=== PATIENT | male | born 1970 | race Two or more races ===

== ENCOUNTER 2025-05-11 20:08 | Inpatient (IN) | payer MEDICAID, OTHER ==
[~2025-05-11] VITALS: Ht 170.2 cm; Wt 96.1 kg
[2025-05-11] MEDS: SODIUM CHLORIDE 0.9% 1,000 ML IV ONE (03:28)
--- NOTE | 2025-05-11 21:40 | DVH ---
CHEST RADIOGRAPH Indication: weak Technique: Single frontal view of the chest was obtained Comparison: None FINDINGS: Lines and Tubes: None Lungs: No focal consolidation. Pleura: No effusion. No pneumothorax. Cardiomediastinal contours: Unremarkable Bones: No acute osseous abnormality. IMPRESSION: 1. No acute cardiopulmonary disease.
[2025-05-11 21:55] LABS: Hemoglobin 14.3 g/dL (13.5-17.5); Mean Corpuscular Hemoglobin 36.9 pg (28.0-32.0); Nucleated Red Blood Cells % 0.1 %
--- NOTE | 2025-05-11 21:55 | DVH ---
Procedure: US RT Lower DVT Study Date and Requested Time: 05/11/2025 09:26 PM History: pain Comparison: None Technique: Multiple high resolution arora-scale images with and without compression obtained of the ri t lower extremity veins, including the common femoral vein, deep femoral vein, proximal mid and dis ilana superficial femoral vein, and popliteal vein. Additional limited images of the greater saphenous vein also obtained. Augmentation performed as indicated. Color and spectral doppler flow images obtai omega as indicated. Findings: No visible intraluminal venous thrombus. No evidence of incompressibility or abnormal color or spectr al Doppler flow visualized in the right lower extremity veins including, the common femoral vein, sd p femoral vein, proximal mid and distal superficial femoral vein, and popliteal vein. Greater sapheno us vein grossly unremarkable. Impression: No sonographic evidence of right lower extremity deep venous thrombosis.
[2025-05-11 21:56] LABS: Hematocrit 41.4 % (41.0-53.0); Mean Corpuscular Volume 106.7 fL (80.0-100.0)
[2025-05-11 22:02] LABS: Alanine Aminotransferase 30 U/L (7-40); Anion Gap 9 (5-15); Blood Urea Nitrogen 14 mg/dL (9-23); Carbon Dioxide 22 mmol/L (20-31); Potassium 4.9 mmol/L (3.5-5.1); Total Protein 7.2 g/dL (5.7-8.2)
[2025-05-11 22:03] LABS: Albumin 2.4 g/dL (3.2-4.8); Alkaline Phosphatase 161 U/L (46-116); Bilirubin, Total 6.0 mg/dL (0.2-1.0); Calcium 7.9 mg/dL (8.7-10.4); Chloride 94 mmol/L (98-107); Glucose 358 mg/dL (74-106); Sodium 125 mmol/L (136-145)
[2025-05-11 22:10] LABS: BUN/Creatinine Ratio 14.4 (10.0-20.0)
--- NOTE | 2025-05-11 22:32 | ED.PDOC ---
Musculoskeletal HPI Comments HPI: 54-year-old male who came to ER for lower extremity pain. Patient does have history of diabetes and liver cirrhosis, alcohol drinker stopped drinking 5 days ago. States for the past week he has been having a lump behind his right knee, progressively worsening, tender to touch. For the past 2 days patient has been having blackish stools. He denies any abdominal pain. Blood sugar at home was 360 Initial Vitals BP: 125/69 HR: 98 RR: 20 O2: 98% Temp: 98.6 Past Medical History: Diabetes, Past Surgical History: Social History: Heavy alcohol drinker stopped drinking 5 days ago, smoking, and drug use. Medications: Allergies: Fermin: HPI: Poor Historian. REVIEW OF SYSTEMS: CONSTITUTIONAL: Denies acute: fever, diaphoresis, chills, HEAD: Denies acute: headache, photophobia Eyes: Denies acute: Double vision, vision loss, eye pain, eye discharge. EARS: Denies acute: tinnitus, hearing loss, ear discharge, ear pain, THROAT: Denies acute: sore throat, swelling, difficulty swallowing , pain with swallowing, change in voice. NECK: Denies acute: neck pain, neck swelling, stiff neck. HEART: Denies acute : chest pain, palpitations, LUNGS: Denies acute: SOB, wheezing, cough, hemoptysis ABDOMEN: Denies acute: abdominal pain, Nausea, Vomiting, diarrhea, , hematemesis, hematochezia SKIN: Denies acute: rash, redness, lesions, itchiness. EXTREMITIES: Denies acute: calf pain, numbness, tingling, weakness, denies pain in extremity. Denies acute: Low back pain. Neuro: Denies acute: focal neurological deficit, motor or sensory focal neurological deficit, tremors, seizure like activity, confusion, dizziness, change in mental status, loss of bowel or bladder function, cauda equina like symptoms. : Denies acute: dysuria, hematuria, flank pain, increase in urinary frequency. PSYCH: Denies acute: hallucination, suicidal ideation, homicidal ideation. PHYSICAL EXAM: General: ----mild----acute distress, awake and alert. Head: normocephalic, atraumatic. Neck: supple, trachea is midline, no swelling. Throat: Normal phonation. Eyes:, no erythema, no purulent discharge, no proptosis, slight icterus. Heart: regular rate, regular rhythm, no significant murmur appreciated. Lungs: no apparent respiratory distress, Able to speak in full sentences. No wheezing, no rhonchi, no crackles. No stridors Clear to auscultation bilaterally. Abdomen: non tender to palpation, non distended, soft, no guarding, no rebound, + bowel sounds. Neuro: Awake, Alert, oriented to name, self, situation, follows commands GCS=15. Speech is normal. Skin: no petechia, no purpura, no cyanosis, non-pale, slightly jaundice. Lower extremities: --no - Pitting edema no deformity, no calf TTP. Noted right knee posterior fossa and above the fossa lump that is erythematous and tender to palpation Makes eye contact. moves all four extremities. Face: no apparent facial droop. ED COURSE: DISCLAIMER: This medical document was created using an electronic medical record system with voice recognition software and computerized dictation system. Although this document has been carefully reviewed, there might still be some phonetic and typographical errors. Occasional wrong-word or "sound-alike" substitutions may have occurred due to the inherent limitations of voice recognition software. These areas are purely typographical due to imperfections of the software programs and do not reflect any compromise in the patient's medical care. Please read the chart carefully and recognize, using context, where these substitutions have occurred. Chief Complaint: Hyperglycemia Time Seen by MD: 22:30 Reviewed Notes: Allergies Allergies: Coded Allergies: NO KNOWN ALLERGIES (Unverified , 05/12/25) Information Source: Patient, Relative Mode of Arrival: Wheelchair Location: Right Was a procedure done? Was a procedure done?: No Differential Diagnosis EXT Differential Diagnosis: Cellulitis, CHF, Deep Vein Thrombosis, Compartment Syndrome, Fracture, Neurovascular injury, Arthritis, Other (Leg swellingDdx include but not limited to DVT, ischemic limb, pitting edema, volume overload, CHF, cellulitis, hematoma, compartment syndrome, dependent edema, venous stasis.) X-Ray, Labs, Meds, VS Vital Signs Date Time Temp Pulse Resp B/P (MAP) Pulse Ox O2 Delivery O2 Flow Rate FiO2 05/12/25 00:46 99.1 84 16 118/67 (84) 97 99.1 05/11/25 20:12 98.6 98 20 125/69 98 98.6 Lab Test 05/11/25 22:59 05/11/25 21:55 05/11/25 21:12 Range/Units Lactic Acid Level 2.5 *H 2.9 *H 0.4-2.0 mmol/L Troponin I High Sensitivity < 3 L 3 L </=54 ng/L White Blood Count 6.9 4.4-10.8 10^3/uL Red Blood Count 3.88 L 4.5-5.90 10^6/uL Hemoglobin 14.3 13.5-17.5 g/dL Hematocrit 41.4 41.0-53.0 % Mean Corpuscular Volume 106.7 H 80.0-100.0 fL Mean Corpuscular Hemoglobin 36.9 H 28.0-32.0 pg Mean Corpuscular Hemoglobin Concent 34.6 32.0-36.0 g/dL Red Cell Distribution Width 14.0 11.8-14.3 % Platelet Count 45 L 140-450 10^3/uL Mean Platelet Volume 9.2 6.9-10.8 fL Neutrophils (%) (Auto) 80.4 H 37.0-80.0 % Lymphocytes (%) (Auto) 8.4 L 10.0-50.0 % Monocytes (%) (Auto) 10.7 0.0-12.0 % Eosinophils (%) (Auto) 0.2 0.0-7.0 % Basophils (%) (Auto) 0.3 0.0-2.0 % Neutrophils # (Auto) 5.5 1.6-8.6 10 ^3/uL Lymphocytes # (Auto) 0.6 0.4-5.4 10 ^3/uL Monocytes # (Auto) 0.7 0-1.3 10 ^3/uL Eosinophils # (Auto) 0 0-0.8 10 ^3/uL Basophils # (Auto) 0 0-0.2 10 ^3/uL Nucleated Red Blood Cells 0.1 % Sodium Level 125 L 136-145 mmol/L Potassium Level 4.9 3.5-5.1 mmol/L Chloride Level 94 L 98-107 mmol/L Carbon Dioxide Level 22 20-31 mmol/L Anion Gap 9 5-15 Blood Urea Nitrogen 14 9-23 mg/dL Creatinine 0.97 0.700-1.30 mg/dL Glomerular Filtration Rate Calc 92 >90 mL/min BUN/Creatinine Ratio 14.4 10.0-20.0 Serum Glucose 358 H 74-106 mg/dL Calcium Level 7.9 L 8.7-10.4 mg/dL Magnesium Level 1.5 L 1.6-2.6 mg/dL Total Bilirubin 6.0 H 0.2-1.0 mg/dL Aspartate Amino Transferase (AST) 98 H 13-40 U/L Alanine Aminotransferase (ALT) 30 7-40 U/L Alkaline Phosphatase 161 H 46-116 U/L Total Protein 7.2 5.7-8.2 g/dL Albumin 2.4 L 3.2-4.8 g/dL Time of 1ST Reevaluation: 22:31 Reevaluation 1ST: Unchanged Patient Education/Counseling: Diagnosis, Treatment Family Education/Counseling: Diagnosis, Treatment Comments MDM: patient presented with the above HPI.--lower extremity pain swelling ----workup was initiated. patient was found with the above mentioned diagnosis. the following medications were ordered: please refer to order lists of meds and tests obtained by myself Dr. Menchaca. Patient ED course and VS have been stabilized. Patient has been reassessed in the ED and remained in a stable condition. Pertinent incidental findings were discussed with the patient and/or family. Patient/family voices understanding and is agreeable with plan. Patient has been observed in the ED adequate length of time to insure improvement/stability. Escalation of care considered: Consideration of escalation to observation or admission Patient was ADMITTED to the medicine team for further evaluation and treatment of their presentation. All the reports of any imaging studies that were ordered by myself were reviewed by myself. Sepsis Sepsis Reasesment Focused Exam Orders: Laboratory Tests 05/11/25 21:12: Lactic Acid Level 2.9 05/11/25 22:59: Lactic Acid Level 2.5 Departure 1 Departure Time of Disposition: 05:43 Impression: Primary Impression: Hyponatremia Additional Impressions: Hypomagnesemia Hyperbilirubinemia Liver cirrhosis Cellulitis of right leg Alcohol withdrawal Harris's cyst of knee Disposition: ADMITTED INPATIENT Admit to: [facility] Condition: Guarded Discharged With: Self Critical Care Note Critical Care Time?: Yes (1 hr-critical care time only) I personally scribed for ERIC MENCHACA DO ([email or web address]) on 05/11/25 at 22:32. Electronically submitted by Fabrizio Genao ([facility]). ERIC MENCHACA DO May 11, 2025 22:32
[2025-05-11 22:36] LABS: Lactic Acid w/Reflex 2.9 mmol/L (0.4-2.0)
--- NOTE | 2025-05-11 23:15 | DVH ---
Exam: CT CT AB PEL WO CON-NO ORAL OR IV History: n/v/ dark stool Comparison Study: None TECHNIQUE: Multidetector CT of the abdomen and pelvis was performed from lung bases to pubic symphysi s. Imaging was performed without IV contrast. Axial, coronal, and sagittal multiplanar reformats were obtained from the axial data set by the technologist. RADIATION DOSE: CTDI vol 8.87 mGy. DLP 608.25 mGy.cm Findings: Limited evaluation of the solid organs in the absence of IV contrast. Evaluation is also degraded by motion artifact. Liver: Nodular hepatic contour. Too small to characterize right hepatic lesion. Spleen: Splenomegaly. Pancreas: Unremarkable. Gallbladder: Unremarkable. Adrenals: The left adrenal gland is not well visualized. 3.5 cm indeterminate lesion in the expected region of the left adrenal gland. Kidneys: 2.5 cm right renal cyst with calcification along the rim. Probable left renal cyst with jonnie cification, suboptimally assessed given motion artifact. No hydronephrosis. Pelvic Viscera: Unremarkable. Vasculature: Mild atherosclerotic aortoiliac calcifications. There are upper abdominal varices. Retroperitoneum: Shotty retroperitoneal nodes. Hazy appearance of the mesentery. Bowel: The small bowel within the pelvis is difficult to follow given close proximity of bowel loops , lack of contrast, and motion artifact. There are scattered locules of gas that are likely contained within small bowel loops, though extraluminal gas cannot be entirely excluded. Musculoskeletal: Grade 1 anterolisthesis of L5 on S1 on the basis of bilateral pars defects. Soft tissues: Unremarkable Lungs: Basilar atelectasis/scarring. Impression: 1. The small bowel within the pelvis is difficult to follow given close proximity of bowel loops, lac k of contrast, and motion artifact. There are scattered locules of gas that are likely contained with in small bowel loops, though extraluminal gas cannot be entirely excluded. If clinically indicated, c onsider further evaluation with a repeat examination with water-soluble oral contrast. 2. Cirrhosis with stigmata of portal hypertension. 3. The left adrenal gland is not well visualized, there is a 3.5 cm indeterminate lesion in the expec peneloep region of the left adrenal gland. An adrenal lesion cannot be excluded. Comparison with any prior outside imaging and further evaluation with a nonemergent MRI of the abdomen may be beneficial in f urther assessment as clinically indicated. 4. Additional findings as detailed.
--- NOTE | 2025-05-12 02:59 | DVH ---
EXAMINATION: CT CT R KNEE WO CONTRAST INDICATION: r knee post fossa redness swelling COMPARISON: None TECHNIQUE: CT of the rightleft foot was performed without contrast. Volume transverse images were obt ained reconstructed in multiple planes using bone and soft tissue algorithms. CTDIvol: 16 mGy. DLP: 563 mGy cm. FINDINGS: Marked soft tissue stranding in the popliteal fossa most focal/confluence along the proximal gastrocn emius muscle bellies. No obvious thick-walled fluid collection. No associated soft tissue gas. An in cidental Harris's cyst is present. No acute osseous finding. Mild tricompartmental osteoarthrosis. Small joint effusion. Peripheral atherosclerosis. IMPRESSION: 1. Marked unorganized soft tissue stranding within the popliteal fossa, without clear etiology. No e vidence of a drainable infectious fluid collection. 2. Small incidental harris's cyst. 3. Mild knee osteoarthrosis and small joint effusion.
[2025-05-12] MEDS ORDERED: LORazepam 2MG/ML-1ML VIAL IV PRN (03:00)
[2025-05-12] MEDS ORDERED: ONDANSETRON HCL 4 MG/2 ML VIAL IV PRN (03:00)
[2025-05-12] MEDS ORDERED: MORPHINE SULFATE INJ 2 MG/ml SYRG IV PRN (03:00)
[2025-05-12] MEDS ORDERED: NITROGLYCERIN 0.4 MG SL TAB SL PRN (03:00)
[2025-05-12] MEDS ORDERED: DOCUSATE SOD 100 MG CAP PO PRN (03:00)
[2025-05-12] MEDS ORDERED: DEXTROSE (50%) 50ML SYRG IV PRN (03:00)
--- NOTE | 2025-05-12 03:06 | DVHHP2 ---
History of Present Illness Reason for Visit: Generalized weakness History of Present Illness The patient is a 54-year-old male with past medical history of EtOH, diabetes mellitus, and liver cirrhosis who presented to [facility] ED with complaint of right lower extremity pain..Patient is a heavy alcohol drinker who stopped drinking 5 days ago, smoking and drug use. Patient reports for the past week he has been experiencing a lump behind his right knee, progressively worsening, tender to touch, painful rating 9/10 numeric scale, has been having blackish stool for the past 2 days. Patient was seen and evaluated in the ED, laboratory data shows WBC 6.9, platelets 27277, sodium 125, potassium 4.9, BUN 14, creatinine 0.97, GFR 92, glucose 358, calcium 7.9, albumin 2.4, lactic acid 2.5, AST 98, ALT 30, alkaline phos 161, magnesium 1.5, total bilirubin 6.0, blood pressure 118/67, heart rate 84, temperature 99.1 F, O2 saturation 97% on room air. Abdomen/pelvis CT revealing cirrhosis with stigmata of portal hypertension; right lower extremity venous study showed no sonographic evidence of right lower extremity deep venous thrombosis. Please see medication orders section in the computer. On my assessment, patient denied chest pain, no headache, no dizziness, no diaphoresis, no shortness of breaths, no abdominal pain, no diarrhea, no nausea, no vomiting, no fever, no chills. Patient was admitted for further evaluation and medical management. Past Medical History EtOH abuse, Diabetes mellitus, Liver cirrhosis, Past Surgical History Denies all surgeries Family History Reviewed, noncontributory to the management of this case. Past Social History The patient lives at home, smokes cigarettes, drinks alcohol heavily, uses illicit drugs abuse. Review of Systems Constitutional: Yes: Weakness; No: Fever, Chills, Sweats, Malaise, Other Eyes: No: Pain, Vision change, Conjunctivae inflammation, Eyelid inflammation, Other, Redness ENT: No: Ear pain, Ear discharge, Nose pain, Nose discharge, Nose congestion, Mouth pain, Mouth swelling, Throat pain, Throat swelling, Other Respiratory: No: Cough, Dry, Shortness of breath, SOB with excertion, Wheezing, Hemoptysis, Pleuritic Pain, Sputum, Wheezing, Other Cardiovascular: No: Chest Pain, Palpitations, Orthopnea, Paroxysmal Noc. Dyspnea, Edema, Lt Headedness, Other Gastrointestinal: No: Nausea, Vomiting, Abdominal Pain, Diarrhea, Constipation, Melena, Hematochezia, Other Genitourinary: No Dysuria, No Frequency, No Incontinence, No Hematuria, No Retention, No Other Musculoskeletal: other (Right lower leg pain); No: neck pain, shoulder pain, arm pain, back pain, hand pain, leg pain, foot pain Skin: No: Rash, Lesions, Jaundice, Bruising, Other Neurological: No: Weakness, Numbness, Incoordination, Change in speech, Confusion, Seizures, Other Allergies: Coded Allergies: NO KNOWN ALLERGIES (Unverified , 05/12/25) Medications Current Medications Medications Dose Ordered Sig/Matt Route Start Time Stop Time Status Last Admin Dose Admin Lorazepam 1 mg Q2HP PRN IV 05/12/25 03:00 UNV Lactulose 30 ml BID PO 05/12/25 10:00 UNV Folic Acid 1 mg/ Dextrose 50.2 ml @ 200.8 mls/ hr DAILY INJ 05/12/25 10:00 UNV Thiamine HCl 100 mg DAILY IV 05/12/25 10:00 UNV Pantoprazole Sodium 40 mg BID IV 05/12/25 10:00 UNV Diagnostic Test (Pha) 1 strip IQ4HR 05/12/25 04:00 UNV Insulin Human Regular IQ4HR SC 05/12/25 04:00 UNV Dextrose 50 ml UD PRN IV 05/12/25 03:00 UNV Sodium Chloride 1,000 ml @ 120 mls/hr Q8H20M IV 05/12/25 03:00 UNV Acetaminophen/ Hydrocodone Bitart 1 tab Q4HP PRN PO 05/12/25 03:00 UNV Ondansetron HCl 4 mg Q4HP PRN IV 05/12/25 03:00 UNV Docusate Sodium 100 mg BIDPRN PRN PO 05/12/25 03:00 UNV Nitroglycerin 0.4 mg Q5MINP PRN SL 05/12/25 03:00 UNV Morphine Sulfate 2 mg Q30M PRN IV 05/12/25 03:00 UNV Exam Vital Signs Vital Signs Date Time Temp Pulse Resp B/P (MAP) Pulse Ox O2 Delivery O2 Flow Rate FiO2 05/12/25 00:46 99.1 84 16 118/67 (84) 97 99.1 General Appearance: Alert, Oriented X3, Cooperative, No acute distress HEENT: Atraumatic, PERRLA, EOMI, Mucous membr. moist/pink Respiratory: Normal air movement, Other (Diminished breath sounds) Cardiovascular: Regular rate, Normal S1, Normal S2, No murmurs Abdominal: Normal bowel sounds, Soft, No tenderness, No hepatospenomegaly, No masses Extremities: No clubbing, No cyanosis, No edema, Normal pulses, Other (Right lower extremity tenderness/swelling) Skin: No rashes, No significant lesion Neuro: Normal speech, Normal tone, Sensation intact, Cranial nerves 3-12 NL, Reflexes 2+, Other (Generalized weakness) Psych/Mental Status: Mental status NL, Mood NL Labs/Xrays Labs Test 05/11/25 22:59 05/11/25 21:55 05/11/25 21:12 Range/Units Lactic Acid Level 2.5 *H 0.4-2.0 mmol/L Troponin I High Sensitivity < 3 L </=54 ng/L White Blood Count 6.9 4.4-10.8 10^3/uL Red Blood Count 3.88 L 4.5-5.90 10^6/uL Hemoglobin 14.3 13.5-17.5 g/dL Hematocrit 41.4 41.0-53.0 % Mean Corpuscular Volume 106.7 H 80.0-100.0 fL Mean Corpuscular Hemoglobin 36.9 H 28.0-32.0 pg Mean Corpuscular Hemoglobin Concent 34.6 32.0-36.0 g/dL Red Cell Distribution Width 14.0 11.8-14.3 % Platelet Count 45 L 140-450 10^3/uL Mean Platelet Volume 9.2 6.9-10.8 fL Neutrophils (%) (Auto) 80.4 H 37.0-80.0 % Lymphocytes (%) (Auto) 8.4 L 10.0-50.0 % Monocytes (%) (Auto) 10.7 0.0-12.0 % Eosinophils (%) (Auto) 0.2 0.0-7.0 % Basophils (%) (Auto) 0.3 0.0-2.0 % Neutrophils # (Auto) 5.5 1.6-8.6 10 ^3/uL Lymphocytes # (Auto) 0.6 0.4-5.4 10 ^3/uL Monocytes # (Auto) 0.7 0-1.3 10 ^3/uL Eosinophils # (Auto) 0 0-0.8 10 ^3/uL Basophils # (Auto) 0 0-0.2 10 ^3/uL Nucleated Red Blood Cells 0.1 % Sodium Level 125 L 136-145 mmol/L Potassium Level 4.9 3.5-5.1 mmol/L Chloride Level 94 L 98-107 mmol/L Carbon Dioxide Level 22 20-31 mmol/L Anion Gap 9 5-15 Blood Urea Nitrogen 14 9-23 mg/dL Creatinine 0.97 0.700-1.30 mg/dL Glomerular Filtration Rate Calc 92 >90 mL/min BUN/Creatinine Ratio 14.4 10.0-20.0 Serum Glucose 358 H 74-106 mg/dL Calcium Level 7.9 L 8.7-10.4 mg/dL Magnesium Level 1.5 L 1.6-2.6 mg/dL Total Bilirubin 6.0 H 0.2-1.0 mg/dL Aspartate Amino Transferase (AST) 98 H 13-40 U/L Alanine Aminotransferase (ALT) 30 7-40 U/L Alkaline Phosphatase 161 H 46-116 U/L Total Protein 7.2 5.7-8.2 g/dL Albumin 2.4 L 3.2-4.8 g/dL PATIENT: LONNIE PAZ ACCT: [id number] UNIT: [id number] : 1970 LOC: ER ROOM / BED: / AGE / SEX: 54 / M ADM STATUS: REG ER SERVICE 07 ORDERING PHYSICIAN: ERIC MENCHACA DO PROCEDURE(s): ABPL - CT AB PEL WO CON-NO ORAL OR IV REASON: n/v/ dark stool ORDER NUMBER(s): [id number], ACCESSION NUMBER(s): [id number] Exam: CT CT AB PEL WO CON-NO ORAL OR IV History: n/v/ dark stool Comparison Study: None TECHNIQUE: Multidetector CT of the abdomen and pelvis was performed from lung bases to pubic symphysis. Imaging was performed without IV contrast. Axial, coronal, and sagittal multiplanar reformats were obtained from the axial data set by the technologist. RADIATION DOSE: CTDI vol 8.87 mGy. DLP 608.25 mGy.cm Findings: Limited evaluation of the solid organs in the absence of IV contrast. Evaluation is also degraded by motion artifact. Liver: Nodular hepatic contour. Too small to characterize right hepatic lesion. Spleen: Splenomegaly. Pancreas: Unremarkable. Gallbladder: Unremarkable. Adrenals: The left adrenal gland is not well visualized. 3.5 cm indeterminate lesion in the expected region of the left adrenal gland. Kidneys: 2.5 cm right renal cyst with calcification along the rim. Probable left renal cyst with calcification, suboptimally assessed given motion artifact. No hydronephrosis. Pelvic Viscera: Unremarkable. Vasculature: Mild atherosclerotic aortoiliac calcifications. There are upper abdominal varices. Retroperitoneum: Shotty retroperitoneal nodes. Hazy appearance of the mesentery. Bowel: The small bowel within the pelvis is difficult to follow given close proximity of bowel loops , lack of contrast, and motion artifact. There are scattered locules of gas that are likely contained within small bowel loops, tough extraluminal gas cannot be entirely excluded. Musculoskeletal: Grade 1 anterolisthesis of L5 on S1 on the basis of bilateral pars defects. Soft tissues: Unremarkable Lungs: Basilar atelectasis/scarring. Impression: 1. The small bowel within the pelvis is difficult to follow given close proximity of bowel loops, lack of contrast, and motion artifact. There are scattered locules of gas that are likely contained within small bowel loops, though extraluminal gas cannot be entirely excluded. If clinically indicated, consider further evaluation with a repeat examination with water-soluble oral contrast. 2. Cirrhosis with stigmata of portal hypertension. 3. The left adrenal gland is not well visualized, there is a 3.5 cm indeterminate lesion in the expected region of the left adrenal gland. An adrenal lesion cannot be excluded. Comparison with any prior outside imaging and further evaluation with a nonemergent MRI of the abdomen may be beneficial in further assessment as clinically indicated. 4. Additional findings as detailed. ORDERING PHYSICIAN: ERIC MENCHACA DO PROCEDURE(s): RLDVT - RT Lower DVT REASON: pain ORDER NUMBER(s): [id number], ACCESSION NUMBER(s): [id number] Procedure: US RT Lower DVT Study Date and Requested Time: 05/11/2025 09:26 PM History: pain Comparison: None Technique: Multiple high resolution arora-scale images with and without compression obtained of the right lower extremity veins, including the common femoral vein, deep femoral vein, proximal mid and distal superficial femoral vein, and popliteal vein. Additional limited images of the greater saphenous vein also obtained. Augmentation performed as indicated. Color and spectral doppler flow images obtained as indicated. Findings: No visible intraluminal venous thrombus. No evidence of incompressibility or abnormal color or spectral Doppler flow visualized in the right lower extremity veins including, the common femoral vein, deep femoral vein, proximal mid and distal superficial femoral vein, and popliteal vein. Greater saphenous vein nel ssly unremarkable. Impression: No sonographic evidence of right lower extremity deep venous thrombosis. ORDERING PHYSICIAN: ERIC MENCHACA DO PROCEDURE(s): RKNCT - CT R KNEE WO CONTRAST REASON: r knee post fossa redness swelling ORDER NUMBER(s): [id number], ACCESSION NUMBER(s): [id number] EXAMINATION: CT CT R KNEE WO CONTRAST INDICATION: r knee post fossa redness swelling COMPARISON: None TECHNIQUE: CT of the rightleft foot was performed without contrast. Volume transverse images were obtained reconstructed in multiple planes using bone and soft tissue algorithms. CTDIvol: 16 mGy. DLP: 563 mGy cm. FINDINGS: Marked soft tissue stranding in the popliteal fossa most focal/confluence along the proximal gastrocnemius muscle bellies. No obvious thick-walled fluid collection. No associated soft tissue gas. An incidental Harris's cyst is present. No acute osseous finding. Mild tricompartmental osteoarthrosis. Small joint effusion. Peripheral atherosclerosis. IMPRESSION: 1. Marked unorganized soft tissue stranding within the popliteal fossa, without clear etiology. No evidence of a drainable infectious fluid collection. 2. Small incidental harris's cyst. 3. Mild knee osteoarthrosis and small joint effusion. ORDERING PHYSICIAN: ERIC MENCHACA DO PROCEDURE(s): CXRP - CHEST PORTABLE REASON: weak ORDER NUMBER(s): [id number], ACCESSION NUMBER(s): [id number] CHEST RADIOGRAPH Indication: weak Technique: Single frontal view of the chest was obtained Comparison: None FINDINGS: Lines and Tubes: None Lungs: No focal consolidation. Pleura: No effusion. No pneumothorax. Cardiomediastinal contours: Unremarkable Bones: No acute osseous abnormality. IMPRESSION: 1. No acute cardiopulmonary disease. SEPSIS Sepsis Screen Date sepsis recognized/suspect: May 11, 2025 Time Sepsis recognized/suspect: 2018 Recent Procedure: No On Antibiotic Therapy: No Respiratory Rate >20: No Heart Rate >90: Yes Temp<36 C (96.8 F) or >38.3 C: No SBP <90 or MAP <65 mmHG: No New Acute Mental Status Change: No Is the patient on CPAP, BIPAP,: No Physician Orders Dental Technology Advisor (05/11/25 ) Urinalysis (05/11/25 20:52) Stool Occult Blood (05/11/25 20:52) Drug Screen (05/11/25 20:52) Chest Portable (05/11/25 20:52) Electrocardigram (05/11/25 20:52) Rt Lower Dvt (05/11/25 20:52) Ct Ab Pel Wo Con-No Oral Or Iv (05/11/25 22:08) Ct R Knee Wo Contrast (05/12/25 01:40) Complete Blood Count (05/12/25 04:00) Comprehensive Metabolic Panel (05/12/25 04:00) Calcium Gluc 1,000mg/50ml-Ns (05/12/25 03:00) Albumin 25% (Albutein) (05/12/25 03:00) Lorazepam 2mg/Ml Inj (Ativan Inj) (05/12/25 03:00) Lactulose Oral (05/12/25 10:00) Folic Acid (05/12/25 10:00) Thiamine Inj (05/12/25 10:00) Pantoprazole (Protonix) (05/12/25 10:00) * Gi Dvh Physical Testing Supervisor (05/12/25 02:54) Consistent Carb(Ccho)Diabetes (05/12/25 Breakfast) Glucose Blood (Accu-Chek Comfort Curve T (05/12/25 04:00) Insulin R (Human) (Insulin R) (05/12/25 04:00) Dextrose 50% Syringe (05/12/25 03:00) Admit (05/12/25 02:54) Allergies (05/12/25 02:54) Code Status (05/12/25 02:54) Sodium Chloride 0.9% (05/12/25 03:00) Oxygen Per Hour (05/12/25 02:54) Hydrocodone-Acet 5/325mg Tab ([place] 5/32 (05/12/25 03:00) Ondansetron Hcl (Zofran) (05/12/25 03:00) Docusate Sodium Capsule (Colace Capsule) (05/12/25 03:00) Fall Risk Precautions In Place QSHIFT (05/12/25 02:54) Complete Blood Count (05/13/25 04:00) Comprehensive Metabolic Panel (05/13/25 04:00) Condition: Serious (05/12/25 02:54) Maintain Bed Rest (05/12/25 02:54) Sequential Compression Device (05/12/25 ) Nitroglycerin Sublingual (Ntrostat Subli (05/12/25 03:00) Morphine Sulfate Injection (05/12/25 03:00) Stat Ekg For Chest Pain (05/12/25 02:54) Notify Md Of Changes From Base (05/12/25 02:54) Landfill Gas Collection System Operator For 24 Hours (05/12/25 02:54) Emergency Dysrhythmia Protocol (05/12/25 02:54) Rhythm Strips Once Every Shift (05/12/25 02:54) Oxygen By Nasal Cannula (05/12/25 02:54) Vital Signs Date Time Temp Pulse Resp B/P (MAP) Pulse Ox O2 Delivery O2 Flow Rate FiO2 05/12/25 00:46 99.1 84 16 118/67 (84) 97 99.1 05/11/25 20:12 98.6 98 20 125/69 98 98.6 Laboratory Tests Test 05/11/25 21:12 05/11/25 22:59 Lactic Acid Level 2.9 mmol/L (0.4-2.0) *H 2.5 mmol/L (0.4-2.0) *H White Blood Count 6.9 10^3/uL (4.4-10.8) Assessment/Plan Assessment/Plan Hyponatremia Hypomagnesemia Hyperbilirubinemia Liver cirrhosis Cellulitis of right leg Alcohol withdrawal Harris's cyst of knee Generalized weakness Diabetes mellitus with hyperglycemia Plan 1. Admit to telemetry unit 2. Breathing treatment 3. Pain control management 4. IV antibiotic management 5. Management of fluids and electrolytes 6. Consultation for GI/hospitalist 7. Diagnostic test abdomen/pelvis CT 8. DVT prophylaxis-on SCDs 9. Repeat labs CBC, CMP in a.m. 10. Home medication reviewed and reconciled 11. Continue with current medical management 12. Treatment plan discussed with patient and RN. Patient verbalized understanding. Plan discussed with: Patient, Daughter (At bedside), Other (RN) My Orders Orders - RHIANNON SIEGEL DNP Procedure Category Date Status Time Complete Blood Count LAB 05/12/25 Logged 04:00 Comprehensive LAB 05/12/25 Logged Metabolic Panel 04:00 Calcium Gluc PHA 05/12/25 Logged 1,000mg/50ml-Ns 03:00 Albumin 25% (Albutein) PHA 05/12/25 Logged 03:00 Lorazepam 2mg/Ml Inj PHA 05/12/25 Logged (Ativan Inj) 03:00 Lactulose Oral PHA 05/12/25 Logged 10:00 Folic Acid PHA 05/12/25 Logged 10:00 Thiamine Inj PHA 05/12/25 Logged 10:00 Pantoprazole PHA 05/12/25 Logged (Protonix) 10:00 * Gi Dvh Physical Testing Supervisor CONS 05/12/25 Transmitted 02:54 Consistent DIET 05/12/25 Transmitted Carb(Ccho)Diabetes Breakfast Glucose Blood PHA 05/12/25 Logged (Accu-Chek Comfort 04:00 Insulin R (Human) PHA 05/12/25 Logged (Insulin R) 04:00 Dextrose 50% Syringe PHA 05/12/25 Logged 03:00 Admit ADMIT 05/12/25 Transmitted 02:54 Allergies FREDDY 05/12/25 In Process 02:54 Code Status CODE 05/12/25 Transmitted 02:54 Sodium Chloride 0.9% PHA 05/12/25 Logged 03:00 Oxygen Per Hour RT 05/12/25 Transmitted 02:54 Hydrocodone-Acet PHA 05/12/25 Logged 5/325mg Tab ([place] 03:00 Ondansetron Hcl PHA 05/12/25 Logged (Zofran) 03:00 Docusate Sodium PHA 05/12/25 Logged Capsule (Colace 03:00 Fall Risk Precautions FREDDY 05/12/[address] 02:54 Complete Blood Count LAB 8/24/25 Verified 04:00 Comprehensive LAB 05/13/25 Verified Metabolic Panel 04:00 Condition: Serious [facility] 05/12/25 In Process 02:54 Maintain Bed Rest [facility] 05/12/25 In Process 02:54 Sequential [facility] 05/12/25 In Process Compression Device Nitroglycerin [facility] 05/12/25 Logged Sublingual (Ntrostat 03:00 Morphine Sulfate [facility] 05/12/25 Logged Injection 03:00 Stat Ekg For Chest [facility] 05/12/25 In Process Pain 02:54 Notify Md Of Changes [facility] 05/12/25 In Process From Base 02:54 Landfill Gas Collection System Operator For [facility] 05/12/25 In Process 24 Hours 02:54 Emergency Dysrhythmia [facility] 05/12/25 In Process Protocol 02:54 Rhythm Strips Once [facility] 05/12/25 In Process Every Shift 02:54 Oxygen By Nasal 05/12/25 Transmitted Cannula 02:54 Problem List: (1) Hyponatremia (2) Alcohol withdrawal (3) Liver cirrhosis (4) Hyperbilirubinemia (5) Hypomagnesemia (6) Cellulitis of right leg (7) Harris's cyst of knee (8) Generalized weakness (9) Diabetes mellitus with hyperglycemia Date of Service: May 12, 2025 Billing Provider: RHIANNON SIEGEL DNP Common Visit Codes: [id number] INP/OBS CARE (HIGH) RHIANNON SIEGEL DNP May 12, 2025 03:06
[2025-05-12] MEDS: THIAMINE HCL 100 MG TAB PO ONE (03:33)
[2025-05-12] MEDS: PIPERACILLIN-TAZOB 3.375GM 100 ML IV ONE (03:34)
[2025-05-12] MEDS: PANTOPRAZOLE 40 MG/10 ML VIAL INJ IV ONE (03:39)
[2025-05-12] MEDS: InsuLIN REG 1unit/0.01ml Soln (100units/ml) SC SCH (04:00)
[2025-05-12] MEDS: SODIUM CHLORIDE 0.9% 1,000 ML IV SCH ×2 (05:37→18:31)
[2025-05-12] MEDS: ACCU-CHEK COMFORT CURVE STRIP VI SCH (05:38)
[2025-05-12 09:09] LABS: Nucleated Red Blood Cells % 0.1 %
[2025-05-12 09:16] LABS: Hematocrit 40.2 % (41.0-53.0); Hemoglobin 13.9 g/dL (13.5-17.5); Mean Corpuscular Hemoglobin 37.3 pg (28.0-32.0); Mean Corpuscular Volume 107.6 fL (80.0-100.0)
[2025-05-12 09:24] LABS: Alanine Aminotransferase 30 U/L (7-40); Albumin 2.4 g/dL (3.2-4.8); Alkaline Phosphatase 153 U/L (46-116); Anion Gap 9 (5-15); BUN/Creatinine Ratio 13.9 (10.0-20.0); Bilirubin, Total 6.1 mg/dL (0.2-1.0); Blood Urea Nitrogen 14 mg/dL (9-23); Calcium 7.5 mg/dL (8.7-10.4); Carbon Dioxide 21 mmol/L (20-31); Chloride 94 mmol/L (98-107); Glucose 297 mg/dL (74-106); Potassium 4.4 mmol/L (3.5-5.1); Sodium 124 mmol/L (136-145); Total Protein 7.2 g/dL (5.7-8.2)
[2025-05-12] MEDS: ALBUMIN 25% 100 ML IV ONE (10:45)
[2025-05-12] MEDS: HYDROcodone-ACET 5/325MG TAB PO PRN (10:45)
[2025-05-12] MEDS: MULTIPLE VITAMIN TAB PO SCH (10:46)
[2025-05-12] MEDS: LACTULOSE 20Gm/30ML SOLN PO SCH (10:46)
[2025-05-12] MEDS: PANTOPRAZOLE 40 MG/10 ML VIAL INJ IV SCH (11:00)
[2025-05-12] MEDS: THIAMINE 100mg/ml INJ (200mg/2ml VIAL) IV SCH (11:00)
[2025-05-12] MEDS: CALCIUM GLUC 1,000mg/50ml-NS 50 ML IV ONE (11:01)
[2025-05-12] MEDS: MAGNESIUM SULFATE 1GM/100ML 100 ML IV ONE (11:01)
[2025-05-12] MEDS: FOLIC ACID 1 MG in D5W 5% 50 ML INJ SCH (12:08)
--- NOTE | 2025-05-12 15:23 | DVHINCON2 ---
Date of service: May 12, [address] lin Reason for Consultation Patient with right lower extremity pain he alcoholism as well as history of weakness tiredness and nausea vomiting. And increasing jaundice and also black stools. History of Present Illness This 54-year-old male presented to the emergency room with a history of alcoholism diabetes liver cirrhosis in the past admitted with a presented with complaints of right lower extremity pain as well as nausea anorexia as well as black stools. Apparently patient has been experiencing a lump in the right knee on the back of the knee which was tender to touch and painful. History of liver cirrhosis from alcoholism he has been drinking moderately heavily even now Denied any history of any pancreatitis or any trauma to the legs recently Past Medical History Liver cirrhosis diabetes alcoholism Past Surgical History None Family History Noncontributory Social History Moderately heavy smoking but heavy drinking and illicit drug abuse Allergies: Coded Allergies: NO KNOWN ALLERGIES (Unverified , 05/12/25) Current Medications Current Medications Medications (Trade) Dose Ordered Sig/Matt Route PRN Reason Start Time Stop Time Status Last Admin Lorazepam (Ativan Inj) 1 mg Q2HP PRN IV ALCOHOL WITHDRAWAL SYMPTOMS 05/12/25 03:00 Lactulose 30 ml BID PO 05/12/25 10:00 05/12/25 10:46 Folic Acid 1 mg/ Dextrose 50.2 ml @ 200.8 mls/ hr DAILY INJ 05/12/25 10:00 05/12/25 12:08 Thiamine HCl 100 mg DAILY IV 05/12/25 10:00 05/12/25 11:00 Pantoprazole Sodium (Protonix) 40 mg BID IV 05/12/25 10:00 05/12/25 11:00 Diagnostic Test (Pha) (Accu-Chek Comfort Curve T) 1 strip IQ4HR 05/12/25 04:00 05/12/25 11:18 Insulin Human Regular (InsuLIN R) IQ4HR SC 05/12/25 04:00 05/12/25 11:18 Dextrose 50 ml UD PRN IV Blood Sugar LESS THAN 60 05/12/25 03:00 Sodium Chloride 1,000 ml @ 120 mls/hr Q8H20M IV 05/12/25 03:00 05/12/25 11:15 Acetaminophen/ Hydrocodone Bitart ([place] 5/325MG Tab) 1 tab Q4HP PRN PO MODERATE PAIN (4-6 PAIN SCALE) 05/12/25 03:00 05/12/25 10:45 Ondansetron HCl (Zofran) 4 mg Q4HP PRN IV NAUSEA / VOMITING 05/12/25 03:00 Docusate Sodium (Colace Capsule) 100 mg BIDPRN PRN PO FOR CONSTIPATION 05/12/25 03:00 Nitroglycerin (Ntrostat Sublingual) 0.4 mg Q5MINP PRN SL FOR CHEST PAIN 05/12/25 03:00 Morphine Sulfate 2 mg Q30M PRN IV FOR CHEST PAIN 05/12/25 03:00 Multivitamins (Mvi Tab) 1 tab DAILY PO 05/12/25 10:00 05/12/25 10:46 Piperacillin Sod/ Tazobactam Sod 100 ml @ 25 mls/hr Q8HR IV 05/12/25 14:00 UNV Morphine Sulfate 2 mg Q4HPRN PRN IV SEVERE PAIN (7-10 PAIN SCALE) 05/12/25 08:45 Review of Systems Noncontributory Vital Signs Vital Signs Date Time Temp Pulse Resp B/P (MAP) Pulse Ox O2 Delivery O2 Flow Rate FiO2 05/12/25 10:30 98.8 79 16 127/63 (84) 97 98.8 Physical Exam Moderately built and nourished male in no acute distress but looks icteric vital signs stable HEENT examination revealed scleral icterus Lungs are clear Vascular unremarkable And soft mild fullness no rigidity no guarding no masses Labs/Diagnostic Data Labs Test 05/12/25 11:13 05/12/25 08:43 05/11/25 22:59 05/11/25 21:55 Range/Units POC Glucose 330 H 70-106 mg/dl White Blood Count 7.4 4.4-10.8 10^3/uL Red Blood Count 3.74 L 4.5-5.90 10^6/uL Hemoglobin 13.9 13.5-17.5 g/dL Hematocrit 40.2 L 41.0-53.0 % Mean Corpuscular Volume 107.6 H 80.0-100.0 fL Mean Corpuscular Hemoglobin 37.3 H 28.0-32.0 pg Mean Corpuscular Hemoglobin Concent 34.6 32.0-36.0 g/dL Red Cell Distribution Width 14.1 11.8-14.3 % Platelet Count 58 L 140-450 10^3/uL Mean Platelet Volume 8.9 6.9-10.8 fL Neutrophils (%) (Auto) 77.0 37.0-80.0 % Lymphocytes (%) (Auto) 9.3 L 10.0-50.0 % Monocytes (%) (Auto) 13.2 H 0.0-12.0 % Eosinophils (%) (Auto) 0.2 0.0-7.0 % Basophils (%) (Auto) 0.3 0.0-2.0 % Neutrophils # (Auto) 5.7 1.6-8.6 10 ^3/uL Lymphocytes # (Auto) 0.7 0.4-5.4 10 ^3/uL Monocytes # (Auto) 1.0 0-1.3 10 ^3/uL Eosinophils # (Auto) 0 0-0.8 10 ^3/uL Basophils # (Auto) 0 0-0.2 10 ^3/uL Nucleated Red Blood Cells 0.1 % Sodium Level 124 L 136-145 mmol/L Potassium Level 4.4 3.5-5.1 mmol/L Chloride Level 94 L 98-107 mmol/L Carbon Dioxide Level 21 20-31 mmol/L Anion Gap 9 5-15 Blood Urea Nitrogen 14 9-23 mg/dL Creatinine 1.01 0.700-1.30 mg/dL Glomerular Filtration Rate Calc 87 >90 mL/min BUN/Creatinine Ratio 13.9 10.0-20.0 Serum Glucose 297 H 74-106 mg/dL Calcium Level 7.5 L 8.7-10.4 mg/dL Total Bilirubin 6.1 H 0.2-1.0 mg/dL Aspartate Amino Transferase (AST) 93 H 13-40 U/L Alanine Aminotransferase (ALT) 30 7-40 U/L Alkaline Phosphatase 153 H 46-116 U/L Total Protein 7.2 5.7-8.2 g/dL Albumin 2.4 L 3.2-4.8 g/dL Lactic Acid Level 2.5 *H 0.4-2.0 mmol/L Troponin I High Sensitivity < 3 L </=54 ng/L Test 05/11/25 21:12 Range/Units Magnesium Level 1.5 L 1.6-2.6 mg/dL Assessment 54-year-old with a history of a alcoholism diabetes liver cirrhosis admitted with complaints of right lower extremity pain as well as abdominal discomfort mild with nausea black stools patient was found to be having a bilirubin of six with jaundice liver enzymes are increased AST of 98 ALT 30 alk phos is 161. CT abdomen showed liver cirrhosis with stigmata of portal hypertension. Right lower extremity showed no venous thrombosis. CT of the [place] of the foot showed there was soft tissue stranding in the popliteal fossa with confluence along the gastrocnemius muscle associated with nosoft tissue gas Cirrhosis of the liver with some GI bleeding end-stage liver disease with a CC of persistent alcoholism and diabetes Pain possible infection in the popliteal fossa etiology of is unclear Plan/Recommendation Recommend to monitor the liver functions and hemoglobin If enzymes continue to worsen may need further evaluation We will recommend a consultation from ortho or surgery about the leg as well as if necessary infectious disease consult We will watch closely for bleeding Thank you Dr. Alberto Hernandez discussed with: Patient ML GONZALES MD May 12, 2025 15:23
[2025-05-12 16:30] VITALS: PULSE 124; RESP 20; O2SAT 96
--- NOTE | 2025-05-12 17:55 | DVHPN2 ---
[facility] evaluated discussed with family and nurse at bedside. At present complains of generalized weakness but no other complaints. Changes from previous H/P or p: No Changes Eyes: No Pain, No Vision change, No Conjunctivae inflammation, No Eyelid inflammation, No Other, No Redness ENT: No Ear pain, No Ear discharge, No Nose pain, No Nose discharge, No Nose congestion, No Mouth pain, No Mouth swelling, No Throat pain, No Throat swelling, No Other Cardiovascular: No Chest Pain, No Palpitations, No Orthopnea, No Paroxysmal Noc. Dyspnea, No Edema, No Lt Headedness, No Other Respiratory: No Cough, No Dry, No Shortness of breath, No SOB with excertion, No Wheezing, No Hemoptysis, No Pleuritic Pain, No Sputum, No Other Gastrointestinal: No Nausea, No Vomiting, No Abdominal Pain, No Diarrhea, No Constipation, No Melena, No Hematochezia, No Other Genitourinary: No Dysuria, No Frequency, No Incontinence, No Hematuria, No Retention, No Other Musculoskeletal: other (Right lower leg pain); No neck pain, No shoulder pain, No arm pain, No back pain, No hand pain, No leg pain, No foot pain Skin: No Rash, No Lesions, No Jaundice, No Bruising, No Other Objective Vitals Vital Signs Date Time Temp Pulse Resp B/P (MAP) Pulse Ox O2 Delivery O2 Flow Rate FiO2 05/12/25 16:30 99.0 124 22 118/89 (99) 95 99.0 Exam Alert awake oriented to place and person. HEENT notable for scleral icterus. Pupils equal round react to light. Heart regular rate and rhythm S1-S2. Lungs fair air movement without rales wheezes. Abdomen obese soft positive bowel sounds nontender. Extremities 1+ edema in the lower extremities. No focal neurologic deficits Medications Current Medications Medications Dose Ordered Sig/Matt Route Start Time Stop Time Status Last Admin Dose Admin Lorazepam 1 mg Q2HP PRN IV 05/12/25 03:00 Lactulose 30 ml BID PO 05/12/25 10:00 05/12/25 10:46 30 ML Folic Acid 1 mg/ Dextrose 50.2 ml @ 200.8 mls/ hr DAILY INJ 05/12/25 10:00 05/12/25 12:08 200.8 MLS/HR Thiamine HCl 100 mg DAILY IV 8/23/25 10:00 05/12/25 11:00 100 MG Pantoprazole Sodium 40 mg BID IV 05/12/25 10:00 05/12/25 11:00 40 MG Diagnostic Test (Pha) 1 strip IQ4HR 05/12/25 04:00 05/12/25 16:19 1 STRIP Insulin Human Regular IQ4HR SC 05/12/25 04:00 05/12/25 16:18 6 UNITS Dextrose 50 ml UD PRN IV 05/12/25 03:00 Sodium Chloride 1,000 ml @ 120 mls/hr Q8H20M IV 05/12/25 03:00 05/12/25 11:15 120 MLS/HR Acetaminophen/ Hydrocodone Bitart 1 tab Q4HP PRN PO 05/12/25 03:00 05/12/25 10:45 1 TAB Ondansetron HCl 4 mg Q4HP PRN IV 05/12/25 03:00 Docusate Sodium 100 mg BIDPRN PRN PO 05/12/25 03:00 Nitroglycerin 0.4 mg Q5MINP PRN SL 05/12/25 03:00 Morphine Sulfate 2 mg Q30M PRN IV 05/12/25 03:00 Multivitamins 1 tab DAILY PO 05/12/25 10:00 05/12/25 10:46 1 TAB Piperacillin Sod/ Tazobactam Sod 100 ml @ 25 mls/hr Q8HR IV 05/12/25 16:49 Morphine Sulfate 2 mg Q4HPRN PRN IV 05/12/25 08:45 Laboratory Results Laboratory Tests 05/12/25 08:43 Chemistry Test 05/11/25 21:12 05/12/25 08:43 Albumin 2.4 g/dL (3.2-4.8) L 2.4 g/dL (3.2-4.8) L Calcium Level 7.9 mg/dL (8.7-10.4) L 7.5 mg/dL (8.7-10.4) L Magnesium Level 1.5 mg/dL (1.6-2.6) L Total Protein 7.2 g/dL (5.7-8.2) 7.2 g/dL (5.7-8.2) LFT Test 05/11/25 21:12 05/12/25 08:43 Alanine Aminotransferase (ALT) 30 U/L (7-40) 30 U/L (7-40) Alkaline Phosphatase 161 U/L (46-116) H 153 U/L (46-116) H Aspartate Amino Transferase (AST) 98 U/L (13-40) H 93 U/L (13-40) H Total Bilirubin 6.0 mg/dL (0.2-1.0) H 6.1 mg/dL (0.2-1.0) H Assessment/Plan Assessment/Plan (1) Hyponatremia (2) Alcohol withdrawal (3) Liver cirrhosis (4) Hyperbilirubinemia (5) Hypomagnesemia (6) Cellulitis of right leg (7) Harris's cyst of knee (8) Generalized weakness (9) Diabetes mellitus with hyperglycemia I will check his coagulation profile, UA/urine drug screen as well as ammonia levels. Put him on alcohol withdrawal protocol. Ativan as needed. GI evaluation. Continue Protonix and rest of supportive care and treatment. Further clinical management per clinical course. Plan discussed with: Patient, Daughter My Orders Orders - BASHIR BYRNE MD Procedure Category Date Status Time Acetaminophen Tablet PHA 05/12/25 Transmitted (Tylenol Tablet) 18:00 0.9% Ns 1000 Ml PHA 05/12/25 Verified 18:00 Acetaminophen Tablet PHA 05/12/25 Verified (Tylenol Tablet) 18:00 Ativan 1mg Iv Q2hr Prn PHA 05/12/25 Verified 18:00 Etoh Withdrawal FREDDY 05/12/25 Verified Assessment 17:50 Date of Service: May 12, 2025 Billing Provider: BASHIR BYRNE MD Common Visit Codes: [id number] INP/OBS CARE(MOD) BASHIR BYRNE MD May 12, 2025 17:55
[2025-05-12] MEDS: ACETAMINOPHEN 325 MG TAB PO ONE (18:26)
[2025-05-12] MEDS: PIPERACILLIN-TAZOB 3.375GM 100 ML IV SCH (18:27)
[2025-05-12] MEDS: LORazepam 2MG/ML-1ML VIAL IV PRN (18:42)
[2025-05-12 19:07] LABS: INR 1.76 (0.9-1.15); Partial Thromboplastin Time 41.4 SEC (24.5-34.5); Prothrombin Time 17.6 sec (9.3-11.8)
[2025-05-12 19:40] VITALS: PULSE 106; RESP 20; O2SAT 98
[2025-05-12] MEDS: LORazepam 2MG/ML-1ML VIAL IV STA (20:14)
[2025-05-12] MEDS: HALOPERIDOL LACTATE 5 MG/ML INJ VIAL IM ONE (21:09)
[2025-05-13 05:48] LABS: Hematocrit 37.2 % (41.0-53.0); Hemoglobin 12.9 g/dL (13.5-17.5); Mean Corpuscular Hemoglobin 37.8 pg (28.0-32.0); Mean Corpuscular Volume 108.8 fL (80.0-100.0); Nucleated Red Blood Cells % 0.2 %
[2025-05-13 06:03] LABS: Alanine Aminotransferase 23 U/L (7-40); Alkaline Phosphatase 109 U/L (46-116); Anion Gap 8 (5-15); BUN/Creatinine Ratio 14.9 (10.0-20.0); Blood Urea Nitrogen 11 mg/dL (9-23); Carbon Dioxide 22 mmol/L (20-31); Chloride 100 mmol/L (98-107); Potassium 4.4 mmol/L (3.5-5.1); Total Protein 5.8 g/dL (5.7-8.2)
[2025-05-13 06:04] LABS: Albumin 2.0 g/dL (3.2-4.8); Bilirubin, Total 6.0 mg/dL (0.2-1.0); Calcium 7.1 mg/dL (8.7-10.4); Glucose 120 mg/dL (74-106); Sodium 130 mmol/L (136-145)
[2025-05-13 08:18] VITALS: PULSE 77; RESP 26; O2SAT 95
--- NOTE | 2025-05-13 17:36 | DVHPN2 ---
[facility] is seen evaluated discussed with family and nurse at bedside. Patient is more alert and awake today. CT of the knee does not show any abscess or fluid collection. Changes from previous H/P or p: No Changes Eyes: No Pain, No Vision change, No Conjunctivae inflammation, No Eyelid inflammation, No Other, No Redness ENT: No Ear pain, No Ear discharge, No Nose pain, No Nose discharge, No Nose congestion, No Mouth pain, No Mouth swelling, No Throat pain, No Throat swelling, No Other Cardiovascular: No Chest Pain, No Palpitations, No Orthopnea, No Paroxysmal Noc. Dyspnea, No Edema, No Lt Headedness, No Other Respiratory: No Cough, No Dry, No Shortness of breath, No SOB with excertion, No Wheezing, No Hemoptysis, No Pleuritic Pain, No Sputum, No Other Gastrointestinal: No Nausea, No Vomiting, No Abdominal Pain, No Diarrhea, No Constipation, No Melena, No Hematochezia, No Other Genitourinary: No Dysuria, No Frequency, No Incontinence, No Hematuria, No Retention, No Other Musculoskeletal: other (Right lower leg pain); No neck pain, No shoulder pain, No arm pain, No back pain, No hand pain, No leg pain, No foot pain Skin: No Rash, No Lesions, No Jaundice, No Bruising, No Other Objective Vitals Vital Signs Date Time Temp Pulse Resp B/P (MAP) Pulse Ox O2 Delivery O2 Flow Rate FiO2 05/13/25 13:45 83 17 120/54 (76) 05/13/25 08:18 95 Room Air* 0 21 05/13/25 05:55 98.1 98.1 Intake/Output Intake and Output 05/13/25 07:00 Intake Total 300.2 ml Balance 300.2 ml Intake IV Total 300.2 ml Exam Alert awake oriented to place and person. HEENT notable for scleral icterus. Pupils equal round react to light. Heart regular rate and rhythm S1-S2. Lungs fair air movement without rales wheezes. Abdomen obese soft positive bowel sounds nontender. Extremities 1+ edema in the lower extremities. No focal neurologic deficits Medications Current Medications Medications Dose Ordered Sig/Matt Route Start Time Stop Time Status Last Admin Dose Admin Lactulose 30 ml BID PO 05/12/25 10:00 05/13/25 10:21 30 ML Folic Acid 1 mg/ Dextrose 50.2 ml @ 200.8 mls/ hr DAILY INJ 05/12/25 10:00 05/13/25 11:00 200.8 MLS/HR Thiamine HCl 100 mg DAILY IV 05/12/25 10:00 05/13/25 10:21 100 MG Pantoprazole Sodium 40 mg BID IV 05/12/25 10:00 05/13/25 10:21 40 MG Diagnostic Test (Pha) 1 strip IQ4HR 05/12/25 04:00 05/13/25 16:58 1 STRIP Insulin Human Regular IQ4HR SC 05/12/25 04:00 05/13/25 17:03 3 UNITS Dextrose 50 ml UD PRN IV 05/12/25 03:00 Acetaminophen/ Hydrocodone Bitart 1 tab Q4HP PRN PO 05/12/25 03:00 05/12/25 10:45 1 TAB Ondansetron HCl 4 mg Q4HP PRN IV 05/12/25 03:00 Docusate Sodium 100 mg BIDPRN PRN PO 05/12/25 03:00 Nitroglycerin 0.4 mg Q5MINP PRN SL 05/12/25 03:00 Morphine Sulfate 2 mg Q30M PRN IV 05/12/25 03:00 Multivitamins 1 tab DAILY PO 05/12/25 10:00 05/13/25 10:21 1 TAB Piperacillin Sod/ Tazobactam Sod 100 ml @ 25 mls/hr Q8HR IV 05/12/25 16:49 05/13/25 14:22 25 MLS/HR Morphine Sulfate 2 mg Q4HPRN PRN IV 05/12/25 08:45 Sodium Chloride 1,000 ml @ 60 mls/hr [id number] IV 05/12/25 18:00 05/13/25 11:28 60 MLS/HR Acetaminophen 650 mg Q4HP PRN PO 05/12/25 22:00 Lorazepam 1 mg Q2HPRN PRN IV 05/12/25 18:00 05/13/25 08:46 1 MG Laboratory Results Laboratory Tests 05/13/25 05:34 Chemistry Test 05/13/25 05:34 Albumin 2.0 g/dL (3.2-4.8) L Calcium Level 7.1 mg/dL (8.7-10.4) L Total Protein 5.8 g/dL (5.7-8.2) Coagulation Test 05/12/25 18:15 Prothrombin Time 17.6 sec (9.3-11.8) H Prothrombin Time INR 1.76 (0.9-1.15) H Activated Partial Thromboplast Time 41.4 SEC (24.5-34.5) H LFT Test 05/13/25 05:34 Alanine Aminotransferase (ALT) 23 U/L (7-40) Alkaline Phosphatase 109 U/L (46-116) Aspartate Amino Transferase (AST) 81 U/L (13-40) H Total Bilirubin 6.0 mg/dL (0.2-1.0) H Assessment/Plan Assessment/Plan (1) Hyponatremia (2) Alcohol withdrawal (3) Liver cirrhosis (4) Hyperbilirubinemia (5) Hypomagnesemia (6) Cellulitis of right leg (7) Harris's cyst of knee (8) Generalized weakness (9) Diabetes mellitus with hyperglycemia Continue lactulose for mildly elevated ammonia levels. I will start him on Aldactone, propranolol and continue proton pump inhibitor. Continue physical therapy evaluation. Low-dose Librium for withdrawals. Otherwise further clinical management per clinical course. Discussed with the daughter along with the nurse at bedside regarding care plan. Plan discussed with: Daughter, Other My Orders Orders - BASHIR BYRNE MD Procedure Category Date Status Time Sodium Chloride 0.9% PHA 05/12/25 In Process 18:00 Acetaminophen Tablet PHA 05/12/25 In Process (Tylenol Tablet) 22:00 Lorazepam 2mg/Ml Inj PHA 05/12/25 In Process (Ativan Inj) 18:00 Etoh Withdrawal FREDDY 05/12/25 In Process Assessment 17:50 Urinalysis LAB 05/12/25 Logged 17:50 Drug Screen LAB 05/12/25 Logged 17:50 Pt Request For Service PT 05/12/25 Logged 17:55 Blood Culture CONCEPCION 05/12/25 In Process 17:56 Complete Blood Count LAB 05/14/25 Verified 04:00 Comprehensive LAB 05/14/25 Verified Metabolic Panel 04:00 Ammonia LAB 05/14/25 Verified 04:00 Date of Service: May 13, 2025 Billing Provider: BASHIR BYRNE MD Common Visit Codes: [id number] INP/OBS CARE(MOD) BASHIR BYRNE MD May 13, 2025 17:36
[2025-05-13] MEDS: PHYTONADIONE(VitK) ORAL Susp 10mg/10ml(1mg/ml) PO ONE (19:08)
[2025-05-13 19:37] VITALS: PULSE 89; RESP 18; O2SAT 95
--- NOTE | 2025-05-13 20:48 | DVH ---
EXAM: CT HEAD WITHOUT CONTRAST INDICATION: aloc TECHNIQUE: CT of the head without intravenous contrast. Radiation Dose Information: CT Dose: CTDI volume is 62.54 mGy. Dose-length product is 1002.29 mGy*cm The dose indicators for CT are the volume Computed Tomography (CT) Dose Index (CTDIvol) and the Dose Length Product (DLP), and are measured in units of mGy and mGy-cm, respectively. These indicators are not patient dose, but values generated from the CT scanner acquisition factors. The report includes radiation exposure data for exposures received during this examination. COMPARISON: None FINDINGS: There is no evidence of acute intracranial hemorrhage, extra-axial collection, mass effect, midline s hift, herniation or hydrocephalus. The ventricles, sulci and cisterns are age appropriate. The arora-white differentiation is intact. Patchy periventricular and subcortical white matter hypoattenuation is nonspecific but may be related to small vessel ischemic disease. Mucosal thickening in the right and left maxillary sinuses and mastoid air cells are clear. The surrounding soft tissues and osseous structures are unremarkable. IMPRESSION: 1. No acute intracranial abnormality.
[2025-05-13] MEDS: ACETAMINOPHEN 325 MG TAB PO PRN (21:11)
[2025-05-14 06:12] LABS: Hematocrit 36.5 % (41.0-53.0); Hemoglobin 12.5 g/dL (13.5-17.5); Mean Corpuscular Hemoglobin 36.7 pg (28.0-32.0); Mean Corpuscular Volume 107.0 fL (80.0-100.0); Nucleated Red Blood Cells % 0.2 %
[2025-05-14 06:34] LABS: Alanine Aminotransferase 23 U/L (7-40); Anion Gap 6 (5-15); BUN/Creatinine Ratio 12.3 (10.0-20.0); Carbon Dioxide 25 mmol/L (20-31); Chloride 100 mmol/L (98-107); Potassium 4.0 mmol/L (3.5-5.1); Total Protein 6.4 g/dL (5.7-8.2)
[2025-05-14 06:39] LABS: Albumin 2.1 g/dL (3.2-4.8); Alkaline Phosphatase 128 U/L (46-116); Bilirubin, Total 7.1 mg/dL (0.2-1.0); Blood Urea Nitrogen 9 mg/dL (9-23); Calcium 7.4 mg/dL (8.7-10.4); Glucose 137 mg/dL (74-106); Sodium 131 mmol/L (136-145)
--- NOTE | 2025-05-14 08:31 | DVHSR ---
APPROVED REPORT EXAM: LIMITED Two-dimensional and M-mode echocardiogram with Doppler and color Doppler. Blood Pressure: 104/59 mmHg INDICATION Alcoholic Cardiomyopathy RISK FACTORS Height: 5' 7", Weight: 199 DIMENSIONS LVDd5.3 (3.8-5.7cm)LA (2D)3.9 (1.9-4.0cm)Aortic Root3.8 (2.0-3.7cm) LVDs3.7 (2.5-4.0cm)LA (MM) (1.9-4.0cm)Aortic Cusp Exc2.1 (1.5-2.0cm) EF (%) 55.0 (55-70%)Rt. Atrium4.3 (1.9-4.0cm)Asc. Aorta cm IVSd1.0 (0.7-1.1cm)RV (D) (1.8-2.4cm) PWd1.0 (0.7-1.1cm) Mitral Valve MitralMitral Stenosis E wave0.80m/sMV Mean GR.mmHg A wave1.10m/sMV Peak GR.mmHg E/A ratio0.72D MVAcm2 Aortic Valve Aortic ValveAortic Stenosis V10.80m/Yohan Mean GR.6mmHg V21.60m/Yohan Peak GR.11mmHg LVOT Diameter2.5 (1.8-2.4cm)Doppler AVA2.45cm2 Other Information Quality : Technically LimitedRhythm : Technically limited study due to body habitus, patient ALOC and laying on right side, patient not co operative with test, patient continues to grab hand and probe and push both away. Conclusion lvef 65% grade 1 diastolic dysfunction normal RV functoin normla atria no severe valve abnormalities noted
[2025-05-14] MEDS: PHYTONADIONE(VitK) ORAL Susp 10mg/10ml(1mg/ml) PO SCH (12:13)
[2025-05-14 19:58] VITALS: PULSE 81; RESP 18; O2SAT 95
--- NOTE | 2025-05-14 21:59 | DVHPN2 ---
[facility] Patient is more alert and awake. His other is at bedside. Denies any complaints. Changes from previous H/P or p: No Changes Eyes: No Pain, No Vision change, No Conjunctivae inflammation, No Eyelid inflammation, No Other, No Redness ENT: No Ear pain, No Ear discharge, No Nose pain, No Nose discharge, No Nose congestion, No Mouth pain, No Mouth swelling, No Throat pain, No Throat swelling, No Other Cardiovascular: No Chest Pain, No Palpitations, No Orthopnea, No Paroxysmal Noc. Dyspnea, No Edema, No Lt Headedness, No Other Respiratory: No Cough, No Dry, No Shortness of breath, No SOB with excertion, No Wheezing, No Hemoptysis, No Pleuritic Pain, No Sputum, No Other Gastrointestinal: No Nausea, No Vomiting, No Abdominal Pain, No Diarrhea, No Constipation, No Melena, No Hematochezia, No Other Genitourinary: No Dysuria, No Frequency, No Incontinence, No Hematuria, No Retention, No Other Musculoskeletal: other (Right lower leg pain); No neck pain, No shoulder pain, No arm pain, No back pain, No hand pain, No leg pain, No foot pain Skin: No Rash, No Lesions, No Jaundice, No Bruising, No Other Objective Vitals Vital Signs Date Time Temp Pulse Resp B/P (MAP) Pulse Ox O2 Delivery O2 Flow Rate FiO2 05/14/25 19:58 81 18 95 Room Air* 0 21 05/14/25 19:58 100.0 122/61 (81) 100.0 Intake/Output Intake and Output 05/14/25 07:00 Intake Total 510.2 ml Balance 510.2 ml Intake IV Total 510.2 ml Exam Alert awake oriented to place and person. HEENT notable for scleral icterus. Pupils equal round react to light. Heart regular rate and rhythm S1-S2. Lungs fair air movement without rales wheezes. Abdomen obese soft positive bowel sounds nontender. Extremities 1+ edema in the lower extremities. No focal neurologic deficits Medications Current Medications Medications Dose Ordered Sig/Matt Route Start Time Stop Time Status Last Admin Dose Admin Lactulose 30 ml BID PO 05/12/25 10:00 05/14/25 10:55 30 ML Folic Acid 1 mg/ Dextrose 50.2 ml @ 200.8 mls/ hr DAILY INJ 05/12/25 10:00 05/14/25 12:13 200.8 MLS/HR Thiamine HCl 100 mg DAILY IV 05/12/25 10:00 05/14/25 10:56 100 MG Pantoprazole Sodium 40 mg BID IV 05/12/25 10:00 05/14/25 10:56 40 MG Diagnostic Test (Pha) 1 strip IQ4HR 05/12/25 04:00 05/14/25 20:00 1 STRIP Insulin Human Regular IQ4HR SC 05/12/25 04:00 05/14/25 20:00 6 UNITS Dextrose 50 ml UD PRN IV 05/12/25 03:00 Acetaminophen/ Hydrocodone Bitart 1 tab Q4HP PRN PO 05/12/25 03:00 05/14/25 11:36 1 TAB Ondansetron HCl 4 mg Q4HP PRN IV 05/12/25 03:00 Docusate Sodium 100 mg BIDPRN PRN PO 05/12/25 03:00 Nitroglycerin 0.4 mg Q5MINP PRN SL 05/12/25 03:00 Morphine Sulfate 2 mg Q30M PRN IV 05/12/25 03:00 Multivitamins 1 tab DAILY PO 05/12/25 10:00 05/14/25 10:55 1 TAB Piperacillin Sod/ Tazobactam Sod 100 ml @ 25 mls/hr Q8HR IV 05/12/25 16:49 05/14/25 14:59 25 MLS/HR Morphine Sulfate 2 mg Q4HPRN PRN IV 05/12/25 08:45 Acetaminophen 650 mg Q4HP PRN PO 05/12/25 22:00 05/13/25 21:11 650 MG Lorazepam 1 mg Q2HPRN PRN IV 05/12/25 18:00 05/13/25 08:46 1 MG Phytonadione 10 mg DAILY PO 05/14/25 10:00 05/16/25 09:59 05/14/25 12:13 10 MG Laboratory Results Laboratory Tests 05/14/25 05:33 Chemistry Test 05/14/25 05:33 Albumin 2.1 g/dL (3.2-4.8) L Calcium Level 7.4 mg/dL (8.7-10.4) L Total Protein 6.4 g/dL (5.7-8.2) LFT Test 05/14/25 05:33 Alanine Aminotransferase (ALT) 23 U/L (7-40) Alkaline Phosphatase 128 U/L (46-116) H Aspartate Amino Transferase (AST) 81 U/L (13-40) H Total Bilirubin 7.1 mg/dL (0.2-1.0) H Microbiology Microbiology Date/Time Source Procedure Growth Status 05/12/25 18:26 Blood Blood Culture - Preliminary NO GROWTH AFTER 48 HOURS OF INCUBATION. Resulted Assessment/Plan Assessment/Plan (1) Hyponatremia (2) Alcohol withdrawal (3) Liver cirrhosis (4) Hyperbilirubinemia (5) Hypomagnesemia (6) Cellulitis of right leg (7) Harris's cyst of knee (8) Generalized weakness (9) Diabetes mellitus with hyperglycemia Continue present management. Social Service for alcohol rehab programs. Physical therapy evaluation. If he remains stable consider discharge home tomorrow. Discussed with the mother at bedside regarding care plan. Plan discussed with: Patient, Other My Orders Orders - BASHIR BYRNE MD Procedure Category Date Status Time * Wound Consult CONS 05/14/25 Transmitted Date of Service: May 14, 2025 Billing Provider: BASHIR BYRNE MD Common Visit Codes: [id number] INP/OBS CARE(MOD) BASHIR BYRNE MD May 14, 2025 21:59
[2025-05-14 22:47] LABS: Urine Protein, UAD TRACE (Negative)
[2025-05-14 22:56] LABS: Amphetamine Screen, Urine Neg (NEGATIVE); Opiate Scree,Urine Neg (NEGATIVE)
[2025-05-14 22:57] LABS: Barbiturate Scree,Urine Neg (NEGATIVE); Benzodiazephine Screen, Urine Neg (NEGATIVE); Cannabinoid Screen, Urine Neg (NEGATIVE); Cocaine Screen, Urine Neg (NEGATIVE); Phencyclidine Screen, Urine Neg (NEGATIVE)
[2025-05-15] VITALS (7 sets, daily range): BP systolic 108–149; BP diastolic 39–79; PULSE 68–82; RESP 17–20; TEMP 98.1–101; O2SAT 95–98
--- NOTE | 2025-05-15 18:55 | DVHPN2 ---
Progress Note - Dictate Date Seen: May 15, 2025 Medical Necessity Reason Pt with a Central, PICC or Fol: No Subjective Patient is still complaining of weakness and tiredness some nausea. No bleeding vital signs Vital Sign Date Time Temp Pulse Resp B/P (MAP) Pulse Ox O2 Delivery O2 Flow Rate FiO2 05/15/25 17:00 98.1 78 19 125/79 (94) 98 98.1 05/15/25 08:00 Nasal Cannula* 2 28 Total Intake and Output 05/14/25 05/14/25 05/15/25 15:00 23:00 07:00 Intake Total 200.8 ml 50 ml Balance 200.8 ml 50 ml medications Current Medications Medications Dose Ordered Sig/Matt Route Start Time Stop Time Status Last Admin Dose Admin Lactulose 30 ml BID PO 05/12/25 10:00 05/15/25 10:08 30 ML Folic Acid 1 mg/ Dextrose 50.2 ml @ 200.8 mls/ hr DAILY INJ 05/12/25 10:00 05/15/25 10:58 200.8 MLS/HR Thiamine HCl 100 mg DAILY IV 05/12/25 10:00 05/15/25 10:08 100 MG Pantoprazole Sodium 40 mg BID IV 05/12/25 10:00 05/15/25 10:08 40 MG Diagnostic Test (Pha) 1 strip IQ4HR 05/12/25 04:00 05/15/25 16:00 1 STRIP Insulin Human Regular IQ4HR SC 05/12/25 04:00 05/15/25 18:45 6 UNITS Dextrose 50 ml UD PRN IV 05/12/25 03:00 Acetaminophen/ Hydrocodone Bitart 1 tab Q4HP PRN PO 05/12/25 03:00 05/14/25 11:36 1 TAB Ondansetron HCl 4 mg Q4HP PRN IV 05/12/25 03:00 Docusate Sodium 100 mg BIDPRN PRN PO 05/12/25 03:00 Nitroglycerin 0.4 mg Q5MINP PRN SL 05/12/25 03:00 Morphine Sulfate 2 mg Q30M PRN IV 05/12/25 03:00 Multivitamins 1 tab DAILY PO 05/12/25 10:00 05/15/25 10:08 1 TAB Piperacillin Sod/ Tazobactam Sod 100 ml @ 25 mls/hr Q8HR IV 05/12/25 16:49 05/15/25 14:09 25 MLS/HR Morphine Sulfate 2 mg Q4HPRN PRN IV 05/12/25 08:45 Acetaminophen 650 mg Q4HP PRN PO 05/12/25 22:00 05/15/25 05:14 650 MG Lorazepam 1 mg Q2HPRN PRN IV 05/12/25 18:00 05/13/25 08:46 1 MG Phytonadione 10 mg DAILY PO 05/14/25 10:00 05/16/25 09:59 05/15/25 10:56 10 MG objective Abdomen is soft some fullness mild nonspecific tenderness no rigidity no guarding no masses laboratory and microbiology Laboratory Tests 05/14/25 05:33 Test 05/14/25 05:33 Range/Units Serum Glucose 137 H 74-106 mg/dL Assessment/Plan 54-year-old with a history of a alcoholism diabetes liver cirrhosis admitted with complaints of right lower extremity pain as well as abdominal discomfort mild with nausea black stools patient was found to be having a bilirubin of six with jaundice liver enzymes are increased AST of 98 ALT 30 alk phos is 161. CT abdomen showed liver cirrhosis with stigmata of portal hypertension. Right lower extremity showed no venous thrombosis. CT of the popliteal fossa showed there was soft tissue stranding in the popliteal fossa with confluence along the gastrocnemius muscle associated with nosoft tissue gas Persist with some cellulitis of the popliteal fossa area and no gross GI bleeding seen at this time And abstain from drinking and alcohol rehab follow hemoglobin closely and continue symptomatic treatment Thank you Dr. Alberto Hernandez discussed with: Patient ML GONZALES MD May 15, 2025 18:55
--- NOTE | 2025-05-15 20:44 | DVHPN2 ---
Subjective Cross covering for [facility] today. Complaints of generalized weakness. Mentation has normalized. Ammonia level is normal. Educated regarding his alcohol use disorder. Pending physical therapy and social Service consultations. Changes from previous H/P or p: No Changes Eyes: No Pain, No Vision change, No Conjunctivae inflammation, No Eyelid inflammation, No Other, No Redness ENT: No Ear pain, No Ear discharge, No Nose pain, No Nose discharge, No Nose congestion, No Mouth pain, No Mouth swelling, No Throat pain, No Throat swelling, No Other Cardiovascular: No Chest Pain, No Palpitations, No Orthopnea, No Paroxysmal Noc. Dyspnea, No Edema, No Lt Headedness, No Other Respiratory: No Cough, No Dry, No Shortness of breath, No SOB with excertion, No Wheezing, No Hemoptysis, No Pleuritic Pain, No Sputum, No Other Gastrointestinal: No Nausea, No Vomiting, No Abdominal Pain, No Diarrhea, No Constipation, No Melena, No Hematochezia, No Other Genitourinary: No Dysuria, No Frequency, No Incontinence, No Hematuria, No Retention, No Other Musculoskeletal: other (Right lower leg pain); No neck pain, No shoulder pain, No arm pain, No back pain, No hand pain, No leg pain, No foot pain Skin: No Rash, No Lesions, No Jaundice, No Bruising, No Other Objective Vitals Vital Signs Date Time Temp Pulse Resp B/P (MAP) Pulse Ox O2 Delivery O2 Flow Rate FiO2 05/15/25 18:27 98.1 78 19 125/79 (94) 98 98.1 05/15/25 18:27 Nasal Cannula* 2 28 Intake/Output Intake and Output 05/15/25 07:00 Intake Total 250.8 ml Balance 250.8 ml Intake IV Total 250.8 ml Exam Alert awake oriented to place and person. HEENT notable for scleral icterus. Pupils equal round react to light. Heart regular rate and rhythm S1-S2. Lungs fair air movement without rales wheezes. Abdomen obese soft positive bowel sounds nontender. Extremities 1+ edema in the lower extremities. No focal neurologic deficits Medications Current Medications Medications Dose Ordered Sig/Matt Route Start Time Stop Time Status Last Admin Dose Admin Lactulose 30 ml BID PO 05/12/25 10:00 05/15/25 10:08 30 ML Folic Acid 1 mg/ Dextrose 50.2 ml @ 200.8 mls/ hr DAILY INJ 05/12/25 10:00 05/15/25 10:58 200.8 MLS/HR Thiamine HCl 100 mg DAILY IV 05/12/25 10:00 05/15/25 10:08 100 MG Pantoprazole Sodium 40 mg BID IV 05/12/25 10:00 05/15/25 10:08 40 MG Diagnostic Test (Pha) 1 strip IQ4HR 05/12/25 04:00 05/15/25 20:06 1 STRIP Insulin Human Regular IQ4HR SC 05/12/25 04:00 05/15/25 20:09 9 UNITS Dextrose 50 ml UD PRN IV 05/12/25 03:00 Acetaminophen/ Hydrocodone Bitart 1 tab Q4HP PRN PO 05/12/25 03:00 05/14/25 11:36 1 TAB Ondansetron HCl 4 mg Q4HP PRN IV 05/12/25 03:00 Docusate Sodium 100 mg BIDPRN PRN PO 05/12/25 03:00 Nitroglycerin 0.4 mg Q5MINP PRN SL 05/12/25 03:00 Morphine Sulfate 2 mg Q30M PRN IV 05/12/25 03:00 Multivitamins 1 tab DAILY PO 05/12/25 10:00 05/15/25 10:08 1 TAB Piperacillin Sod/ Tazobactam Sod 100 ml @ 25 mls/hr Q8HR IV 05/12/25 16:49 05/15/25 14:09 25 MLS/HR Morphine Sulfate 2 mg Q4HPRN PRN IV 05/12/25 08:45 Acetaminophen 650 mg Q4HP PRN PO 05/12/25 22:00 05/15/25 05:14 650 MG Lorazepam 1 mg Q2HPRN PRN IV 05/12/25 18:00 05/13/25 08:46 1 MG Phytonadione 10 mg DAILY PO 05/14/25 10:00 05/16/25 09:59 05/15/25 10:56 10 MG Laboratory Results Laboratory Tests 05/14/25 05:33 Urinalysis Test 05/14/25 22:00 Urine Color Dark-yellow (Yellow) Urine Clarity Clear (Clear) Urine pH 6.0 (5.0-9.0) Urine Specific [place] 1.030 (1.001-1.035) Urine Protein Trace (Negative) H Urine Ketones Negative (Negative) Urine Blood 1+ /uL (Negative) H Urine Nitrite Negative (Negative) Urine Bilirubin 2+ (Negative) Urine Urobilinogen 12 mg/dL (Negative) H Urine Leukocyte Esterase Negative /uL (Negative) Urine RBC 16 /hpf (0 - 3) Urine Microscopic WBC 2 /HPF (0-3) Urine Squamous Epithelial Cells Few /hpf (<5) Urine Bacteria None seen /hpf (None Seen) Urine Glucose 4+ mg/dL (Normal) H Microbiology Microbiology Date/Time Source Procedure Growth Status 05/12/25 18:26 Blood Blood Culture - Preliminary NO GROWTH AFTER 72 HOURS OF INCUBATION. Resulted Assessment/Plan Assessment/Plan (1) Hyponatremia (2) Alcohol withdrawal (3) Liver cirrhosis (4) Hyperbilirubinemia (5) Hypomagnesemia (6) Cellulitis of right leg (7) Harris's cyst of knee (8) Generalized weakness (9) Diabetes mellitus with hyperglycemia Once physical therapy social Service evaluated him we will arrange for home DME including walker and physical therapy. Consider discharge home with home health in the next 24 hours. Plan discussed with: Patient, Other My Orders Orders - BASHIR BYRNE MD Procedure Category Date Status Time * Ball Point Splitter CONS 05/14/25 Transmitted Consult * Dietary Consult CONS 05/15/25 Transmitted 18:08 Cleanse Wound With FREDDY 05/15/25 In Process Wound Clean 16:53 Date of Service: May 15, 2025 Billing Provider: BASHIR BYRNE MD Common Visit Codes: [id number] INP/OBS CARE(MOD) BASHIR BYRNE MD May 15, 2025 20:44
[2025-05-16] VITALS (9 sets, daily range): BP systolic 113–131; BP diastolic 62–79; PULSE 62–82; RESP 16–20; TEMP 98.4–99.8; O2SAT 93–98
[2025-05-16] MEDS: MORPHINE SULFATE INJ 2 MG/ml SYRG IV PRN (00:31)
--- NOTE | 2025-05-16 15:48 | DVHPN2 ---
Subjective Patient's wound was examined wishes in the right popliteal fossa. Still has some drainage. Changes from previous H/P or p: No Changes Eyes: No Pain, No Vision change, No Conjunctivae inflammation, No Eyelid inflammation, No Other, No Redness ENT: No Ear pain, No Ear discharge, No Nose pain, No Nose discharge, No Nose congestion, No Mouth pain, No Mouth swelling, No Throat pain, No Throat swelling, No Other Cardiovascular: No Chest Pain, No Palpitations, No Orthopnea, No Paroxysmal Noc. Dyspnea, No Edema, No Lt Headedness, No Other Respiratory: No Cough, No Dry, No Shortness of breath, No SOB with excertion, No Wheezing, No Hemoptysis, No Pleuritic Pain, No Sputum, No Other Gastrointestinal: No Nausea, No Vomiting, No Abdominal Pain, No Diarrhea, No Constipation, No Melena, No Hematochezia, No Other Genitourinary: No Dysuria, No Frequency, No Incontinence, No Hematuria, No Retention, No Other Musculoskeletal: other (Right lower leg pain); No neck pain, No shoulder pain, No arm pain, No back pain, No hand pain, No leg pain, No foot pain Skin: No Rash, No Lesions, No Jaundice, No Bruising, No Other Objective Vitals Vital Signs Date Time Temp Pulse Resp B/P (MAP) Pulse Ox O2 Delivery O2 Flow Rate FiO2 05/16/25 13:00 98.4 67 18 130/76 (94) 95 98.4 05/16/25 08:00 Nasal Cannula* 2 28 Intake/Output Intake and Output 05/16/25 07:00 Intake Total 500 ml Output Total 550 ml Balance -50 ml Intake Oral 200 ml IV Total 300 ml Output Urine Total 550 ml # Bowel Movements 1 Exam HEENT pupils are reactive Neck is supple CV is S1-S2 regular rate and rhythm Respiratory diminished breath sounds bases GI positive bowel sound Extremity no edema 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 Medications Current Medications Medications Dose Ordered Sig/Matt Route Start Time Stop Time Status Last Admin Dose Admin Lactulose 30 ml BID PO 05/12/25 10:00 05/16/25 10:04 30 ML Folic Acid 1 mg/ Dextrose 50.2 ml @ 200.8 mls/ hr DAILY INJ 05/12/25 10:00 05/16/25 10:04 200.8 MLS/HR Thiamine HCl 100 mg DAILY IV 05/12/25 10:00 05/16/25 10:04 100 MG Pantoprazole Sodium 40 mg BID IV 05/12/25 10:00 05/16/25 10:04 40 MG Diagnostic Test (Pha) 1 strip IQ4HR 05/12/25 04:00 05/16/25 12:25 1 STRIP Insulin Human Regular IQ4HR SC 05/12/25 04:00 05/16/25 12:26 6 UNITS Dextrose 50 ml UD PRN IV 05/12/25 03:00 Acetaminophen/ Hydrocodone Bitart 1 tab Q4HP PRN PO 05/12/25 03:00 05/16/25 13:40 1 TAB Ondansetron HCl 4 mg Q4HP PRN IV 05/12/25 03:00 Docusate Sodium 100 mg BIDPRN PRN PO 05/12/25 03:00 Nitroglycerin 0.4 mg Q5MINP PRN SL 05/12/25 03:00 Morphine Sulfate 2 mg Q30M PRN IV 05/12/25 03:00 Multivitamins 1 tab DAILY PO 05/12/25 10:00 05/16/25 10:04 1 TAB Piperacillin Sod/ Tazobactam Sod 100 ml @ 25 mls/hr Q8HR IV 05/12/25 16:49 05/16/25 13:37 25 MLS/HR Morphine Sulfate 2 mg Q4HPRN PRN IV 05/12/25 08:45 05/16/25 00:31 2 MG Acetaminophen 650 mg Q4HP PRN PO 05/12/25 22:00 05/15/25 05:14 650 MG Lorazepam 1 mg Q2HPRN PRN IV 05/12/25 18:00 05/13/25 08:46 1 MG Laboratory Results Laboratory Tests 05/14/25 05:33 Urinalysis Test 05/14/25 22:00 Urine Color Dark-yellow (Yellow) Urine Clarity Clear (Clear) Urine pH 6.0 (5.0-9.0) Urine Specific [place] 1.030 (1.001-1.035) Urine Protein Trace (Negative) H Urine Ketones Negative (Negative) Urine Blood 1+ /uL (Negative) H Urine Nitrite Negative (Negative) Urine Bilirubin 2+ (Negative) Urine Urobilinogen 12 mg/dL (Negative) H Urine Leukocyte Esterase Negative /uL (Negative) Urine RBC 16 /hpf (0 - 3) Urine Microscopic WBC 2 /HPF (0-3) Urine Squamous Epithelial Cells Few /hpf (<5) Urine Bacteria None seen /hpf (None Seen) Urine Glucose 4+ mg/dL (Normal) H Microbiology Microbiology Date/Time Source Procedure Growth Status 05/12/25 18:26 Blood Blood Culture - Preliminary NO GROWTH AFTER 72 HOURS OF INCUBATION. Resulted Assessment/Plan Assessment/Plan 54-year-old male with a known history of chronic alcoholism, liver cirrhosis, diabetes mellitus type 2 who initially presented to the hospital with bump in the right knee found to have 1. Right popliteal fossa on Narcan denies stranding as per CT/status post suspected organized abscess now 2. Liver cirrhosis 3. Chronic alcoholism 4. Diabetes mellitus type 2 -IV antibiotics wound care discharge plan. Plan discussed with: Patient My Orders Orders - SALVADOR HEARN MD Procedure Category Date Status Time * Orthopedic Consult CONS 05/16/25 Transmitted 14:12 Date of Service: May 16, 2025 Billing Provider: SALVADOR HEARN MD Common Visit Codes: [id number] INP/OBS CARE(MOD) SALVADOR HEARN MD May 16, 2025 15:48
--- NOTE | 2025-05-16 20:01 | DVHINCON2 ---
Consult Note Consult Consult Note History of Present Illness: Mr. Fermin is an inpatient admitted for management of uncontrolled diabetes. Orthopedic consultation was requested for evaluation of an abscess noted on the posterior aspect of the right knee. On interview today, the patient reports that the swelling began approximately two weeks ago and has progressively worsened. He notes increasing pain as well as drainage from the posterior aspect of the right knee. No numbness/tingling knee joint pain, decreased knee ROM reported. No fever, chills. Exam: Posterior right knee: Mass and fluctuance with serosanguineous drainage noted with mild surrounding cellulitis and tenderness to palpation present. No open joint communication identified. Neurovascular exam of right lower extremity grossly intact. Imaging: CT right knee 1. Marked unorganized soft tissue stranding within the popliteal fossa, without clear etiology. No evidence of a drainable infectious fluid collection. 2. Small incidental jin's cyst. 3. Mild knee osteoarthrosis and small joint effusion. Assessment: Posterior right knee abscess in the setting of uncontrolled diabetes. Ongoing pain and drainage posterior right knee abscess Plan: RECS FROM ORTHOPEDIC ONCALL SURGEON DR. LOMBARDI MRI Right knee w/o contrast Continue inpatient medical management of diabetes. Recommend referral to General Surgery or tertiary care for further eval and treatment Discussed findings with the patient. For further questions or concerns, please contact Orthopedics, Dr. Reed. Thank you for the consult. Plan discussed with: Patient (bedside nurse) Visit Coding Surgery Date of Service if different f: May 16, 2025 Billing Provider: BOBBI KIDD Surgery Visit Codes: [id number] - INP CONSULT <55 MIN BOBBI KIDD May 16, 2025 20:01
[2025-05-17] VITALS (8 sets, daily range): BP systolic 122–138; BP diastolic 62–98; PULSE 63–76; RESP 16–22; TEMP 97.9–98.4; O2SAT 94–98
--- NOTE | 2025-05-17 15:11 | DVH ---
CLINICAL HISTORY: Wound behind right knee COMPARISON: CT CT R KNEE WO CONTRAST on DOS: 05/12/25 TECHNIQUE: Multisequence multiplanar MRI images of the right knee were obtained without contrast. FINDINGS: Cruciate ligaments: ACL and PCL are intact. Extensor mechanism: Quadriceps mechanism and patellar tendon are intact. Mild edema and trace fluid i n the prepatellar and superficial infrapatellar bursae. Collateral ligaments: Medial and lateral collateral ligaments are intact. Menisci: No meniscal tear visualized. Cartilage: Moderate chondral fissuring/ fibrillation of the superior pole of the patella near the med laura ridge with adjacent subchondral cystic change. Bones: No acute fracture or focal marrow contusion. No evidence for osteomyelitis. Joint fluid: Small to moderate joint effusion. Other: Wound at the posterior aspect of the knee with surrounding subcutaneous edema and fluid within the posterior subcutaneous tissues, may be seen with cellulitis and possible phlegmon in the appropr iate clinical setting. Limited evaluation for abscess on noncontrast enhanced exam. There is intramus cular edema in the visualized portions of the distal biceps femoris and semimembranosus muscles, poss ible myositis in the appropriate clinical setting. Popliteal cyst measures up to 5.2 cm in craniocaud al dimension. IMPRESSION: 1. Wound of the posterior aspect of the knee with surrounding subcutaneous edema and fluid, likely ce llulitis and possible phlegmon in the appropriate clinical setting. Can not exclude abscess given the fluid in the posterior aspect of the knee. Limited evaluation for abscess without IV contrast. 2. Intramuscular edema in the visualized portions of the biceps femoris and semimembranosus muscles, possible myositis in the appropriate clinical setting. 3. Popliteal cyst. 4. Small to moderate joint effusion. 5. Chondromalacia patellae with grade 3 changes as described above. 6. Additional findings as described above.
--- NOTE | 2025-05-17 16:15 | DVHPN2 ---
Subjective Patient's wound was examined wishes in the right popliteal fossa. Still has some drainage. Changes from previous H/P or p: No Changes Eyes: No Pain, No Vision change, No Conjunctivae inflammation, No Eyelid inflammation, No Other, No Redness ENT: No Ear pain, No Ear discharge, No Nose pain, No Nose discharge, No Nose congestion, No Mouth pain, No Mouth swelling, No Throat pain, No Throat swelling, No Other Cardiovascular: No Chest Pain, No Palpitations, No Orthopnea, No Paroxysmal Noc. Dyspnea, No Edema, No Lt Headedness, No Other Respiratory: No Cough, No Dry, No Shortness of breath, No SOB with excertion, No Wheezing, No Hemoptysis, No Pleuritic Pain, No Sputum, No Other Gastrointestinal: No Nausea, No Vomiting, No Abdominal Pain, No Diarrhea, No Constipation, No Melena, No Hematochezia, No Other Genitourinary: No Dysuria, No Frequency, No Incontinence, No Hematuria, No Retention, No Other Musculoskeletal: other (Right lower leg pain); No neck pain, No shoulder pain, No arm pain, No back pain, No hand pain, No leg pain, No foot pain Skin: No Rash, No Lesions, No Jaundice, No Bruising, No Other Objective Vitals Vital Signs Date Time Temp Pulse Resp B/P (MAP) Pulse Ox O2 Delivery O2 Flow Rate FiO2 05/17/25 13:30 98.0 67 18 126/98 (107) 96 98.0 05/17/25 08:00 Room Air* 0 21 Intake/Output Intake and Output 05/17/25 07:00 Intake Total 1700.8 ml Output Total 1700 ml Balance 0.8 ml Intake Oral 1300 ml IV Total 400.8 ml Output Urine Total 1700 ml Exam HEENT pupils are reactive Neck is supple CV is S1-S2 regular rate and rhythm Respiratory diminished breath sounds bases GI positive bowel sound Extremity no edema 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 Medications Current Medications Medications Dose Ordered Sig/Matt Route Start Time Stop Time Status Last Admin Dose Admin Lactulose 30 ml BID PO 05/12/25 10:00 05/17/25 11:03 30 ML Folic Acid 1 mg/ Dextrose 50.2 ml @ 200.8 mls/ hr DAILY INJ 05/12/25 10:00 05/17/25 11:06 200.8 MLS/HR Thiamine HCl 100 mg DAILY IV 05/12/25 10:00 05/17/25 11:05 100 MG Pantoprazole Sodium 40 mg BID IV 05/12/25 10:00 05/17/25 11:05 40 MG Diagnostic Test (Pha) 1 strip IQ4HR 05/12/25 04:00 05/17/25 12:00 1 STRIP Insulin Human Regular IQ4HR SC 05/12/25 04:00 05/17/25 11:58 6 UNITS Dextrose 50 ml UD PRN IV 05/12/25 03:00 Acetaminophen/ Hydrocodone Bitart 1 tab Q4HP PRN PO 05/12/25 03:00 05/16/25 13:40 1 TAB Ondansetron HCl 4 mg Q4HP PRN IV 05/12/25 03:00 Docusate Sodium 100 mg BIDPRN PRN PO 05/12/25 03:00 Nitroglycerin 0.4 mg Q5MINP PRN SL 05/12/25 03:00 Morphine Sulfate 2 mg Q30M PRN IV 05/12/25 03:00 Multivitamins 1 tab DAILY PO 05/12/25 10:00 05/17/25 11:03 1 TAB Piperacillin Sod/ Tazobactam Sod 100 ml @ 25 mls/hr Q8HR IV 05/12/25 16:49 05/17/25 15:27 25 MLS/HR Morphine Sulfate 2 mg Q4HPRN PRN IV 05/12/25 08:45 05/16/25 00:31 2 MG Acetaminophen 650 mg Q4HP PRN PO 05/12/25 22:00 05/15/25 05:14 650 MG Lorazepam 1 mg Q2HPRN PRN IV 05/12/25 18:00 05/13/25 08:46 1 MG Enteral Nutritional Formula 27.5 gm BIDWM PO 05/17/25 18:00 UNV Laboratory Results Laboratory Tests 05/14/25 05:33 Urinalysis Test 05/14/25 22:00 Urine Color Dark-yellow (Yellow) Urine Clarity Clear (Clear) Urine pH 6.0 (5.0-9.0) Urine Specific [place] 1.030 (1.001-1.035) Urine Protein Trace (Negative) H Urine Ketones Negative (Negative) Urine Blood 1+ /uL (Negative) H Urine Nitrite Negative (Negative) Urine Bilirubin 2+ (Negative) Urine Urobilinogen 12 mg/dL (Negative) H Urine Leukocyte Esterase Negative /uL (Negative) Urine RBC 16 /hpf (0 - 3) Urine Microscopic WBC 2 /HPF (0-3) Urine Squamous Epithelial Cells Few /hpf (<5) Urine Bacteria None seen /hpf (None Seen) Urine Glucose 4+ mg/dL (Normal) H Microbiology Microbiology Date/Time Source Procedure Growth Status 05/12/25 18:26 Blood Blood Culture - Preliminary NO GROWTH AFTER 72 HOURS OF INCUBATION. Resulted Assessment/Plan Assessment/Plan 54-year-old male with a known history of chronic alcoholism, liver cirrhosis, diabetes mellitus type 2 who initially presented to the hospital with bump in the right knee found to have 1. Right popliteal fossa on Narcan denies stranding as per CT/status post suspected organized abscess now 2. Liver cirrhosis 3. Chronic alcoholism 4. Diabetes mellitus type 2 5. Coagulopathy -IV antibiotics wound care , surgical consult Plan discussed with: Patient, Daughter My Orders Orders - SALVADOR HEARN MD Procedure Category Date Status Time Nutritional PHA 05/17/25 Logged Supplements (Justo 18:00 * Surgical Consult CONS 05/17/25 Transmitted Date of Service: May 17, 2025 Billing Provider: SALVADOR HEARN MD Common Visit Codes: [id number] INP/OBS CARE(MOD) SALVADOR HEARN MD May 17, 2025 16:15
--- NOTE | 2025-05-17 17:59 | DVHINCON2 ---
Consultation - Surgical Date Seen: May 17, 2025 Referring Physician Reason for Consultation Right posterior knee abscess History of Present Illness History of Present Illness Mr. Fermin is a 54 yo M who is admitted due to abscess to posterior right knee. Abscess first started to swell up approx 2 weeks ago and continued to get worse, making ambulation very difficult. Since admission on 05/12 he has been on IV abx. Skin broke open and started draining pus and thats when pain alleviated. Currently draining seropurulent material. Denies: fevers, chills, nausea, vomiting. Pt is a daily drinker but stopped approx 7 days ago. Past Medical/Surgical History Past Medical/Surgical History Cirrhosis, DM2 Family and Social History Family and Social History Etoh: daily beers stopped 7 days ago TOB/Drugs: denies Allergies and medications Allergies: Coded Allergies: NO KNOWN ALLERGIES (Unverified , 05/12/25) Review of systems Review of Systems: Not Done Examination Vital signs Vital Signs Date Time Temp Pulse Resp B/P (MAP) Pulse Ox O2 Delivery O2 Flow Rate FiO2 05/17/25 16:30 97.9 76 18 138/80 (99) 95 97.9 05/17/25 08:00 Room Air* 0 21 Medications Current Medications Medications (Trade) Dose Ordered Sig/Matt Route PRN Reason Start Time Stop Time Status Last Admin Enteral Nutritional Formula (Justo Addison Powder PACKET) 27.5 gm BIDWM PO 05/17/25 18:00 UNV Laboratory Labs Test 05/17/25 16:58 05/16/25 13:00 05/14/25 22:00 05/14/25 05:33 Range/Units POC Glucose 236 H 70-106 mg/dl Stool Occult Blood Positive Negative Stool Occult Blood Sample #3 Negative Urine Color Dark-yellow Yellow Urine Clarity Clear Clear Urine pH 6.0 5.0-9.0 Urine Specific [place] 1.030 1.001-1.035 Urine Protein Trace H Negative Urine Ketones Negative Negative Urine Blood 1+ H Negative /uL Urine Nitrite Negative Negative Urine Bilirubin 2+ Negative Urine Urobilinogen 12 H Negative mg/dL Urine Leukocyte Esterase Negative Negative /uL Urine RBC 16 0 - 3 /hpf Urine Microscopic WBC 2 0-3 /HPF Urine Squamous Epithelial Cells Few <5 /hpf Urine Bacteria None seen None Seen /hpf Urine Glucose 4+ H Normal mg/dL Urine Opiates Screen Neg NEGATIVE Urine Fentanyl Screen Neg NEGATIVE Urine Barbiturates Screen Neg NEGATIVE Urine Phencyclidine Screen Neg NEGATIVE Urine Amphetamines Screen Neg NEGATIVE Urine Benzodiazepines Screen Neg NEGATIVE Urine Cocaine Screen Neg NEGATIVE Urine Cannabinoids Screen Neg NEGATIVE White Blood Count 5.5 4.4-10.8 10^3/uL Red Blood Count 3.41 L 4.5-5.90 10^6/uL Hemoglobin 12.5 L 13.5-17.5 g/dL Hematocrit 36.5 L 41.0-53.0 % Mean Corpuscular Volume 107.0 H 80.0-100.0 fL Mean Corpuscular Hemoglobin 36.7 H 28.0-32.0 pg Mean Corpuscular Hemoglobin Concent 34.3 32.0-36.0 g/dL Red Cell Distribution Width 13.6 11.8-14.3 % Platelet Count 50 L 140-450 10^3/uL Mean Platelet Volume 7.9 6.9-10.8 fL Neutrophils (%) (Auto) 75.7 37.0-80.0 % Lymphocytes (%) (Auto) 9.6 L 10.0-50.0 % Monocytes (%) (Auto) 13.7 H 0.0-12.0 % Eosinophils (%) (Auto) 0.7 0.0-7.0 % Basophils (%) (Auto) 0.3 0.0-2.0 % Neutrophils # (Auto) 4.1 1.6-8.6 10 ^3/uL Lymphocytes # (Auto) 0.5 0.4-5.4 10 ^3/uL Monocytes # (Auto) 0.8 0-1.3 10 ^3/uL Eosinophils # (Auto) 0 0-0.8 10 ^3/uL Basophils # (Auto) 0 0-0.2 10 ^3/uL Nucleated Red Blood Cells 0.2 % Sodium Level 131 L 136-145 mmol/L Potassium Level 4.0 3.5-5.1 mmol/L Chloride Level 100 98-107 mmol/L Carbon Dioxide Level 25 20-31 mmol/L Anion Gap 6 5-15 Blood Urea Nitrogen 9 9-23 mg/dL Creatinine 0.73 0.700-1.30 mg/dL Glomerular Filtration Rate Calc 107 >90 mL/min BUN/Creatinine Ratio 12.3 10.0-20.0 Serum Glucose 137 H 74-106 mg/dL Calcium Level 7.4 L 8.7-10.4 mg/dL Total Bilirubin 7.1 H 0.2-1.0 mg/dL Aspartate Amino Transferase (AST) 81 H 13-40 U/L Alanine Aminotransferase (ALT) 23 7-40 U/L Alkaline Phosphatase 128 H 46-116 U/L Ammonia 18 11-32 umol/L Total Protein 6.4 5.7-8.2 g/dL Albumin 2.1 L 3.2-4.8 g/dL Test 05/12/25 18:15 05/11/25 22:59 05/11/25 21:55 05/11/25 21:12 Range/Units Prothrombin Time 17.6 H 9.3-11.8 sec Prothrombin Time INR 1.76 H 0.9-1.15 Activated Partial Thromboplast Time 41.4 H 24.5-34.5 SEC Lactic Acid Level 2.5 *H 0.4-2.0 mmol/L Troponin I High Sensitivity < 3 L </=54 ng/L Magnesium Level 1.5 L 1.6-2.6 mg/dL Microbiology Date/Time Source Procedure Growth Status 05/12/25 18:26 Blood Blood Culture - Preliminary NO GROWTH AFTER 72 HOURS OF INCUBATION. Resulted Examination: GENERAL:Normal, ABDOMEN:Normal (soft, depressible, non distended, non tender), SKIN:Abnormal (RT posterior knee edema, fluctuance and active seropurulent drainage, tender, no crepitus has surrounding erythema) Problem List/Assessment/Plan Problems: (1) Abscess of lower extremity Assessment and Plan 54 yo M who is admitted to the hospital since 05/12 with posterior right lower extremity cellulitis with abscess. Abscess currently spontaneously draining, but more pus comes out with expression. He will benefit from formal incision and drainage. Procedure, risks, benefits, complications, and alternatives discussed with pt and family. They agree with plan. -weight caller to OR tomorrow am for right lower extremity incision and drainage -NPO at midnight -CBC, CMP, PT/INR, Type and screen, CXR, EKG, ordered Plan discussed with Plan discussed with: Patient, Daughter Visit Coding Surgery Date of Service if different f: May 17, 2025 Billing Provider: CHUYITA DUKE MD Surgery Visit Codes: [id number] - INP CONSULT <55 MIN CHUYITA DUKE MD May 17, 2025 17:59
[2025-05-17] MEDS: Juven Orange Powder PACKET 27.5gm PO SCH (18:00)
--- NOTE | 2025-05-17 19:57 | DVH ---
EXAM: XY CHEST XRAY 1 VIEW TECHNIQUE: Single frontal chest radiograph CLINICAL HISTORY: pre op COMPARISON: XY CHEST PORTABLE on DOS: 05/11/25 Findings/Impression: Frontal chest radiograph demonstrates no acute osseous or superficial soft tissue abnormalities. The trachea is midline. The cardiac silhouette and mediastinum are within normal limits. Low lung volumes with bronchovascular crowding. No pneumothorax, pleural effusions, or consolidations.
[2025-05-18] VITALS (9 sets, daily range): BP systolic 107–131; BP diastolic 66–74; PULSE 63–93; RESP 13–20; TEMP 97.7–98.2; O2SAT 94–100
[2025-05-18 07:00] LABS: Alanine Aminotransferase 24 U/L (7-40); Anion Gap 7 (5-15); BUN/Creatinine Ratio 10.4 (10.0-20.0); Carbon Dioxide 28 mmol/L (20-31); Chloride 100 mmol/L (98-107); Potassium 3.9 mmol/L (3.5-5.1); Total Protein 6.4 g/dL (5.7-8.2)
[2025-05-18 07:09] LABS: Albumin 2.0 g/dL (3.2-4.8); Alkaline Phosphatase 142 U/L (46-116); Bilirubin, Total 4.2 mg/dL (0.2-1.0); Blood Urea Nitrogen 8 mg/dL (9-23); Calcium 7.6 mg/dL (8.7-10.4); Glucose 222 mg/dL (74-106); Sodium 135 mmol/L (136-145)
[2025-05-18 07:16] LABS: INR 1.77 (0.9-1.15); Prothrombin Time 17.7 sec (9.3-11.8)
[2025-05-18] MEDS ORDERED: MIDAZOLAM HCL 2MG/2ML 2ml VIAL (1mg/ml) ONE (07:29)
[2025-05-18] MEDS ORDERED: fentaNYL CITRATE 100 MCG/2 ML VL ONE (07:29)
[2025-05-18] MEDS ORDERED: LIDOCAINE 2% (LOCAL ANESTH.) PF 5ml SDV ONE (07:30)
[2025-05-18] MEDS ORDERED: METOCLOPRAMIDE HCL 5MG/ml INJ 2ml VIAL ONE (07:30)
[2025-05-18] MEDS ORDERED: ONDANSETRON HCL 4 MG/2 ML VIAL ONE (07:30)
[2025-05-18] MEDS ORDERED: PROPOFOL 10 MG/ML 20 ML IV ONE (07:30)
[2025-05-18] MEDS ORDERED: SODIUM CHLORIDE LOCK 10 ML ONE ×2 (07:53→08:25)
[2025-05-18] MEDS ORDERED: HYDROmorphone HCL 2 MG/ML VL/or syr ONE (08:01)
[2025-05-18] MEDS: BUPIVACAINE HCL 0.25% P/F 10 ML VIAL ONE (08:12)
[2025-05-18 08:42] LABS: Hematocrit 35.6 % (41.0-53.0); Hemoglobin 12.4 g/dL (13.5-17.5); Mean Corpuscular Hemoglobin 37.6 pg (28.0-32.0); Mean Corpuscular Volume 107.6 fL (80.0-100.0); Nucleated Red Blood Cells % 0.1 %
[2025-05-18] MEDS ORDERED: hydrALAZINE HCL 20 MG/ML VL IV PRN (08:45)
[2025-05-18] MEDS ORDERED: METOCLOPRAMIDE HCL 5MG/ml INJ 2ml VIAL IV PRN (08:45)
[2025-05-18] MEDS ORDERED: ONDANSETRON HCL 4 MG/2 ML VIAL IV PRN (08:45)
[2025-05-18] MEDS: HYDROmorphone HCL 2 MG/ML VL/or syr IV PRN (09:30)
--- NOTE | 2025-05-18 09:44 | ECG ---
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
--- NOTE | 2025-05-18 09:55 | DVHOP2 ---
Operative Report - 2 Report Details Date: 05/18/25 Preop Diagnosis: Right posterior knee abscess. Postop Diagnosis: Same Surgeon: Corey Perez MD Anesthesiologist: Michael king CRNA Anesthesia: General Consent: The patient was informed of the risks and benefits of the procedure. These include but are not limited to complications of anesthesia, postoperative infection, incomplete relief of symptoms, recurrence of symptoms, damage to b lood vessels, nerves and tendons, deep venous thrombosis, pulmonary embolism and possible need for repeat surgery in the future. Estimated Blood Loss: 15 mL Findings: Posterior knee abscess extending below and above the calf muscle. Abscess cavity extended inferiorly approximately 5 cm, anteriorly approximately 5 cm, superiorly approximately 2 cm. Name of Procedure Performed Incision and drainage of the right lower extremity Procedure Details Procedure Details: Upon arriving to the operating room the patient was transferred to the operating table and placed in the supine position. General endotracheal anesthesia was induced. Time-out was observed. Patient was then placed in the left lateral recumbent position. Patient was prepped and draped in the standard sterile surgical fashion with Betadine Betadine. I then noted an area of erythema and fluctuance posterior to the right knee, it was spontaneously draining from a pinpoint hole some seropurulent material. This area was incised with the incision extending to the lateral aspect of the posterior right knee. Immediately pus started emanating from the wound, cultures were taken. I then broke loculations digitally. Incision made is approximately 5 cm transversely in the posterior right knee. Wound cavity extends approximately 5 cm inferiorly, 5 cm anteriorly, and 2 cm superiorly. Cavity extends above the gastrocnemius muscle. I then manually expressed all the pus out of the abscess cavity. I then performed a saline/Betadine wash of the wound. Hemostasis was obtained with electrocautery. Wound was again irrigated with saline. Wound was packed with Surgicel sheet and 4" Kerlix roll. Wound was dressed with a Telfa pad 4 x 4 gauze ABD pad, held in place with Kerlix roll wrap and David wrap. All counts complete and correct at the end of the procedure. Patient tolerated the procedure well. Patient was transferred to the PACU in stable condition. Specimen: Aerobic and anaerobic cultures Condition Stable Disposition Still a Patient COREY DUKE MD May 18, 2025 09:55
--- NOTE | 2025-05-18 13:00 | POSTOP ---
Post-Operative Note Post-Operative Note Preop Diagnosis Right posterior knee abscess. Postop Diagnosis: Same Operation performed Incision and drainage of the right lower extremity Specimen Aerobic and anaerobic cultures Anesthesia: General Anesthesiologist: Michael king CRNA Blood Loss(fluid mgmt) 15 mL Surgeon Corey Perez MD Additional Remarks Patient doing well post surgery. 1. Okay for diet 2. Do not remove dressing, I will remove dressing tomorrow a.m. 3. Pain and nausea control as needed Date 05/18/25 Time 12:58 COREY DUKE MD May 18, 2025 13:00
--- NOTE | 2025-05-18 16:38 | DVHPN2 ---
Subjective Patient's wound was examined wishes in the right popliteal fossa. Still has some drainage. Patient is status post I and D of the right popliteal fossa. Changes from previous H/P or p: No Changes Eyes: No Pain, No Vision change, No Conjunctivae inflammation, No Eyelid inflammation, No Other, No Redness ENT: No Ear pain, No Ear discharge, No Nose pain, No Nose discharge, No Nose congestion, No Mouth pain, No Mouth swelling, No Throat pain, No Throat swelling, No Other Cardiovascular: No Chest Pain, No Palpitations, No Orthopnea, No Paroxysmal Noc. Dyspnea, No Edema, No Lt Headedness, No Other Respiratory: No Cough, No Dry, No Shortness of breath, No SOB with excertion, No Wheezing, No Hemoptysis, No Pleuritic Pain, No Sputum, No Other Gastrointestinal: No Nausea, No Vomiting, No Abdominal Pain, No Diarrhea, No Constipation, No Melena, No Hematochezia, No Other Genitourinary: No Dysuria, No Frequency, No Incontinence, No Hematuria, No Retention, No Other Musculoskeletal: other (Right lower leg pain); No neck pain, No shoulder pain, No arm pain, No back pain, No hand pain, No leg pain, No foot pain Skin: No Rash, No Lesions, No Jaundice, No Bruising, No Other Objective Vitals Vital Signs Date Time Temp Pulse Resp B/P (MAP) Pulse Ox O2 Delivery O2 Flow Rate FiO2 05/18/25 13:00 97.8 85 15 107/69 (82) 97 97.8 05/18/25 09:02 Room Air 0 98 Intake/Output Intake and Output 05/18/25 07:00 Intake Total 1620.8 ml Output Total 2500 ml Balance -879.2 ml Intake Oral 1220 ml IV Total 400.8 ml Output Urine Total 2500 ml # Bowel Movements 2 Exam HEENT pupils are reactive Neck is supple CV is S1-S2 regular rate and rhythm Respiratory diminished breath sounds bases GI positive bowel sound Extremity no edema 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 Medications Current Medications Medications Dose Ordered Sig/Matt Route Start Time Stop Time Status Last Admin Dose Admin Lactulose 30 ml BID PO 05/12/25 10:00 05/18/25 11:52 30 ML Folic Acid 1 mg/ Dextrose 50.2 ml @ 200.8 mls/ hr DAILY INJ 05/12/25 10:00 05/18/25 11:54 200.8 MLS/HR Thiamine HCl 100 mg DAILY IV 05/12/25 10:00 05/18/25 11:52 100 MG Pantoprazole Sodium 40 mg BID IV 05/12/25 10:00 05/18/25 11:53 40 MG Diagnostic Test (Pha) 1 strip IQ4HR 05/12/25 04:00 05/18/25 12:05 1 STRIP Insulin Human Regular IQ4HR SC 05/12/25 04:00 05/18/25 04:16 9 UNITS Dextrose 50 ml UD PRN IV 05/12/25 03:00 Acetaminophen/ Hydrocodone Bitart 1 tab Q4HP PRN PO 05/12/25 03:00 05/16/25 13:40 1 TAB Ondansetron HCl 4 mg Q4HP PRN IV 05/12/25 03:00 Docusate Sodium 100 mg BIDPRN PRN PO 05/12/25 03:00 Nitroglycerin 0.4 mg Q5MINP PRN SL 05/12/25 03:00 Morphine Sulfate 2 mg Q30M PRN IV 05/12/25 03:00 Multivitamins 1 tab DAILY PO 05/12/25 10:00 05/18/25 11:53 1 TAB Piperacillin Sod/ Tazobactam Sod 100 ml @ 25 mls/hr Q8HR IV 05/12/25 16:49 05/18/25 07:58 Morphine Sulfate 2 mg Q4HPRN PRN IV 05/12/25 08:45 05/16/25 00:31 2 MG Acetaminophen 650 mg Q4HP PRN PO 05/12/25 22:00 05/15/25 05:14 650 MG Lorazepam 1 mg Q2HPRN PRN IV 05/12/25 18:00 05/13/25 08:46 1 MG Enteral Nutritional Formula 27.5 gm BIDWM PO 05/17/25 18:00 Laboratory Results Laboratory Tests 05/18/25 05:53 Chemistry Test 05/18/25 05:53 Albumin 2.0 g/dL (3.2-4.8) L Calcium Level 7.6 mg/dL (8.7-10.4) L Total Protein 6.4 g/dL (5.7-8.2) Coagulation Test 05/18/25 05:53 Prothrombin Time 17.7 sec (9.3-11.8) H Prothrombin Time INR 1.77 (0.9-1.15) H LFT Test 05/18/25 05:53 Alanine Aminotransferase (ALT) 24 U/L (7-40) Alkaline Phosphatase 142 U/L (46-116) H Aspartate Amino Transferase (AST) 76 U/L (13-40) H Total Bilirubin 4.2 mg/dL (0.2-1.0) H Urinalysis Test 05/14/25 22:00 Urine Color Dark-yellow (Yellow) Urine Clarity Clear (Clear) Urine pH 6.0 (5.0-9.0) Urine Specific [place] 1.030 (1.001-1.035) Urine Protein Trace (Negative) H Urine Ketones Negative (Negative) Urine Blood 1+ /uL (Negative) H Urine Nitrite Negative (Negative) Urine Bilirubin 2+ (Negative) Urine Urobilinogen 12 mg/dL (Negative) H Urine Leukocyte Esterase Negative /uL (Negative) Urine RBC 16 /hpf (0 - 3) Urine Microscopic WBC 2 /HPF (0-3) Urine Squamous Epithelial Cells Few /hpf (<5) Urine Bacteria None seen /hpf (None Seen) Urine Glucose 4+ mg/dL (Normal) H Microbiology Microbiology Date/Time Source Procedure Growth Status 05/18/25 07:56 Knee Right Received 05/12/25 18:26 Blood Blood Culture - Final NO GROWTH AFTER 5 DAYS OF INCUBATION. Complete Assessment/Plan Assessment/Plan 54-year-old male with a known history of chronic alcoholism, liver cirrhosis, diabetes mellitus type 2 who initially presented to the hospital with bump in the right knee found to have 1. Right popliteal fossa abscess status post I and D 2. Liver cirrhosis 3. Chronic alcoholism 4. Diabetes mellitus type 2 5. Coagulopathy -IV antibiotics wound care , surgical consult appreciated Plan discussed with: Patient Date of Service: May 18, 2025 Billing Provider: SALVADOR HEARN MD Common Visit Codes: [id number] INP/OBS CARE(MOD) SALVADOR HEARN MD May 18, 2025 16:38
[2025-05-19] VITALS (8 sets, daily range): BP systolic 118–158; BP diastolic 53–94; PULSE 58–81; RESP 16–18; TEMP 96.3–98.2; O2SAT 94–98
--- NOTE | 2025-05-19 10:44 | DVHPN2 ---
Progress Note - Surgical Date Seen: May 19, 2025 Post op day Post op day: 1 Subjective Patient reports: Feels better (States that pain in right lower extremity has improved, he is afebrile with vital signs stable, had 2 BMs yesterday) Review of Systems: Not Done Objective Vital signs Vital Sign Date Time Temp Pulse Resp B/P (MAP) Pulse Ox O2 Delivery O2 Flow Rate FiO2 05/19/25 09:00 98.1 58 16 148/80 (102) 96 98.1 05/19/25 08:00 Nasal Cannula* 2 28 Total Intake and Output 05/18/25 05/18/25 05/19/25 15:00 23:00 07:00 Intake Total 200 ml 700 ml 1400 ml Output Total 500 ml 800 ml Balance 200 ml 200 ml 600 ml Medications Current Medications Medications Dose Ordered Sig/Matt Route Start Time Stop Time Status Last Admin Dose Admin Lactulose 30 ml BID PO 05/12/25 10:00 05/19/25 08:19 30 ML Folic Acid 1 mg/ Dextrose 50.2 ml @ 200.8 mls/ hr DAILY INJ 05/12/25 10:00 05/19/25 09:01 200.8 MLS/HR Thiamine HCl 100 mg DAILY IV 05/12/25 10:00 05/19/25 08:20 100 MG Pantoprazole Sodium 40 mg BID IV 05/12/25 10:00 05/19/25 08:20 40 MG Diagnostic Test (Pha) 1 strip IQ4HR 05/12/25 04:00 05/19/25 08:20 1 STRIP Insulin Human Regular IQ4HR SC 05/12/25 04:00 05/19/25 05:09 3 UNITS Dextrose 50 ml UD PRN IV 05/12/25 03:00 Acetaminophen/ Hydrocodone Bitart 1 tab Q4HP PRN PO 05/12/25 03:00 05/19/25 08:29 1 TAB Ondansetron HCl 4 mg Q4HP PRN IV 05/12/25 03:00 Docusate Sodium 100 mg BIDPRN PRN PO 05/12/25 03:00 Nitroglycerin 0.4 mg Q5MINP PRN SL 05/12/25 03:00 Morphine Sulfate 2 mg Q30M PRN IV 05/12/25 03:00 Multivitamins 1 tab DAILY PO 05/12/25 10:00 05/19/25 08:20 1 TAB Piperacillin Sod/ Tazobactam Sod 100 ml @ 25 mls/hr Q8HR IV 05/12/25 16:49 05/19/25 05:09 25 MLS/HR Morphine Sulfate 2 mg Q4HPRN PRN IV 05/12/25 08:45 05/16/25 00:31 2 MG Acetaminophen 650 mg Q4HP PRN PO 05/12/25 22:00 05/15/25 05:14 650 MG Lorazepam 1 mg Q2HPRN PRN IV 05/12/25 18:00 05/13/25 08:46 1 MG Enteral Nutritional Formula 27.5 gm BIDWM PO 05/17/25 18:00 Laboratory Laboratory Tests 05/18/25 05:53 Test 05/18/25 05:53 Range/Units Serum Glucose 222 H 74-106 mg/dL Microbiology Date/Time Source Procedure Growth Status 05/18/25 07:56 Knee Right Gram Stain Pending Resulted 05/18/25 07:56 Knee Right Anaerobic Culture - Preliminary Resulted 05/18/25 07:56 Knee Right Wound Culture Pending Resulted 05/12/25 18:26 Blood Blood Culture - Final NO GROWTH AFTER 5 DAYS OF INCUBATION. Complete Examination: GENERAL:Normal, SKIN:Abnormal (Right posterior knee wound without drainage, pus, necrotic tissue, or crepitus. Some very minimal oozing from wound edges after packing was removed. Erythema around wound edges. Wound was repacked) Problem List/Assessment/Plan Problems: (1) Abscess of lower extremity Assessment and Plan 54-year-old male who was consulted due to right lower extremity abscess, he is currently postop day 1 from incision and drainage with evacuation of abscess at the OR. Wound is looking better today, packing was taken down and no pus or drainage was noted. Patient will need continued daily packing. 1. Continue with antibiotics 2. Still pending cultures 3. Daily dressing changes as indicated in the order 4. Pain and nausea control 5. Bowel regimen 6. Patient will need home health services for wound care at home, unless he has a family member that can be taught how to perform the dressing changes My Orders My Orders Orders - CHUYITA DUKE MD Procedure Category Date Status Time Complete Blood Count LAB 05/20/25 Verified 04:00 Comprehensive LAB 8/31/25 Verified Metabolic Panel 04:00 Change Dressing Daily FREDDY 05/19/25 Verified 10:35 Plan discussed with Plan discussed with: Patient Visit Coding Surgery Date of Service if different f: May 19, 2025 Billing Provider: CHUYITA DUKE MD Surgery Visit Codes: [id number] INP/OBS CARE(HIGH) CHUYITA DUKE MD May 19, 2025 10:44
--- NOTE | 2025-05-19 17:38 | DVHPN2 ---
Subjective Patient's wound was examined wishes in the right popliteal fossa. Still has some drainage. Patient is status post I and D of the right popliteal fossa. Changes from previous H/P or p: No Changes Eyes: No Pain, No Vision change, No Conjunctivae inflammation, No Eyelid inflammation, No Other, No Redness ENT: No Ear pain, No Ear discharge, No Nose pain, No Nose discharge, No Nose congestion, No Mouth pain, No Mouth swelling, No Throat pain, No Throat swelling, No Other Cardiovascular: No Chest Pain, No Palpitations, No Orthopnea, No Paroxysmal Noc. Dyspnea, No Edema, No Lt Headedness, No Other Respiratory: No Cough, No Dry, No Shortness of breath, No SOB with excertion, No Wheezing, No Hemoptysis, No Pleuritic Pain, No Sputum, No Other Gastrointestinal: No Nausea, No Vomiting, No Abdominal Pain, No Diarrhea, No Constipation, No Melena, No Hematochezia, No Other Genitourinary: No Dysuria, No Frequency, No Incontinence, No Hematuria, No Retention, No Other Musculoskeletal: other (Right lower leg pain); No neck pain, No shoulder pain, No arm pain, No back pain, No hand pain, No leg pain, No foot pain Skin: No Rash, No Lesions, No Jaundice, No Bruising, No Other Objective Vitals Vital Signs Date Time Temp Pulse Resp B/P (MAP) Pulse Ox O2 Delivery O2 Flow Rate FiO2 05/19/25 17:00 97.9 70 16 158/94 (115) 94 97.9 05/19/25 08:00 Nasal Cannula* 2 28 Intake/Output Intake and Output 05/19/25 07:00 Intake Total 2300 ml Output Total 1300 ml Balance 1000 ml Intake Oral 2100 ml IV Total 200 ml Output Urine Total 1300 ml Exam HEENT pupils are reactive Neck is supple CV is S1-S2 regular rate and rhythm Respiratory diminished breath sounds bases GI positive bowel sound Extremity no edema 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 Medications Current Medications Medications Dose Ordered Sig/Matt Route Start Time Stop Time Status Last Admin Dose Admin Lactulose 30 ml BID PO 05/12/25 10:00 05/19/25 08:19 30 ML Folic Acid 1 mg/ Dextrose 50.2 ml @ 200.8 mls/ hr DAILY INJ 05/12/25 10:00 05/19/25 09:01 200.8 MLS/HR Thiamine HCl 100 mg DAILY IV 05/12/25 10:00 05/19/25 08:20 100 MG Pantoprazole Sodium 40 mg BID IV 05/12/25 10:00 05/19/25 08:20 40 MG Diagnostic Test (Pha) 1 strip IQ4HR 05/12/25 04:00 05/19/25 16:00 1 STRIP Insulin Human Regular IQ4HR SC 05/12/25 04:00 05/19/25 17:30 6 UNITS Dextrose 50 ml UD PRN IV 05/12/25 03:00 Acetaminophen/ Hydrocodone Bitart 1 tab Q4HP PRN PO 05/12/25 03:00 05/19/25 08:29 1 TAB Ondansetron HCl 4 mg Q4HP PRN IV 05/12/25 03:00 Docusate Sodium 100 mg BIDPRN PRN PO 05/12/25 03:00 Nitroglycerin 0.4 mg Q5MINP PRN SL 05/12/25 03:00 Morphine Sulfate 2 mg Q30M PRN IV 05/12/25 03:00 Multivitamins 1 tab DAILY PO 05/12/25 10:00 05/19/25 08:20 1 TAB Piperacillin Sod/ Tazobactam Sod 100 ml @ 25 mls/hr Q8HR IV 05/12/25 16:49 05/19/25 15:08 25 MLS/HR Morphine Sulfate 2 mg Q4HPRN PRN IV 05/12/25 08:45 05/16/25 00:31 2 MG Acetaminophen 650 mg Q4HP PRN PO 05/12/25 22:00 05/15/25 05:14 650 MG Lorazepam 1 mg Q2HPRN PRN IV 05/12/25 18:00 05/13/25 08:46 1 MG Enteral Nutritional Formula 27.5 gm BIDWM PO 05/17/25 18:00 Laboratory Results Laboratory Tests 05/18/25 05:53 Urinalysis Test 05/14/25 22:00 Urine Color Dark-yellow (Yellow) Urine Clarity Clear (Clear) Urine pH 6.0 (5.0-9.0) Urine Specific [place] 1.030 (1.001-1.035) Urine Protein Trace (Negative) H Urine Ketones Negative (Negative) Urine Blood 1+ /uL (Negative) H Urine Nitrite Negative (Negative) Urine Bilirubin 2+ (Negative) Urine Urobilinogen 12 mg/dL (Negative) H Urine Leukocyte Esterase Negative /uL (Negative) Urine RBC 16 /hpf (0 - 3) Urine Microscopic WBC 2 /HPF (0-3) Urine Squamous Epithelial Cells Few /hpf (<5) Urine Bacteria None seen /hpf (None Seen) Urine Glucose 4+ mg/dL (Normal) H Microbiology Microbiology Date/Time Source Procedure Growth Status 05/18/25 07:56 Knee Right Gram Stain - Final Resulted 05/18/25 07:56 Knee Right Anaerobic Culture - Preliminary Resulted 05/18/25 07:56 Knee Right Wound Culture - Preliminary Resulted 05/12/25 18:26 Blood Blood Culture - Final NO GROWTH AFTER 5 DAYS OF INCUBATION. Complete Assessment/Plan Assessment/Plan 54-year-old male with a known history of chronic alcoholism, liver cirrhosis, diabetes mellitus type 2 who initially presented to the hospital with bump in the right knee found to have 1. Right popliteal fossa abscess status post I and D 2. Liver cirrhosis 3. Chronic alcoholism 4. Diabetes mellitus type 2 5. Coagulopathy -IV antibiotics wound care , discharge plan once cleared by General surgery. Plan discussed with: Patient Date of Service: May 19, 2025 Billing Provider: SALVADOR HEARN MD Common Visit Codes: [id number] INP/OBS CARE(MOD) SALVADOR HEARN MD May 19, 2025 17:38
[2025-05-20] VITALS (7 sets, daily range): BP systolic 125–156; BP diastolic 69–89; PULSE 64–73; RESP 14–20; TEMP 97.6–99.4; O2SAT 96–98
[2025-05-20 07:48] LABS: Hematocrit 33.4 % (41.0-53.0); Hemoglobin 11.6 g/dL (13.5-17.5); Mean Corpuscular Hemoglobin 37.2 pg (28.0-32.0); Mean Corpuscular Volume 106.7 fL (80.0-100.0); Nucleated Red Blood Cells % 0.1 %
[2025-05-20 08:07] LABS: Alanine Aminotransferase 26 U/L (7-40); Anion Gap 5 (5-15); BUN/Creatinine Ratio 12.5 (10.0-20.0); Carbon Dioxide 24 mmol/L (20-31); Chloride 102 mmol/L (98-107); Potassium 4.3 mmol/L (3.5-5.1); Total Protein 6.1 g/dL (5.7-8.2)
[2025-05-20 08:08] LABS: Albumin 1.7 g/dL (3.2-4.8); Alkaline Phosphatase 123 U/L (46-116); Bilirubin, Total 3.6 mg/dL (0.2-1.0); Blood Urea Nitrogen 7 mg/dL (9-23); Calcium 7.4 mg/dL (8.7-10.4); Glucose 151 mg/dL (74-106); Sodium 131 mmol/L (136-145)
--- NOTE | 2025-05-20 10:52 | DVHPN2 ---
Progress Note - Surgical Date Seen: May 20, 2025 Post op day Post op day: 2 Subjective Patient reports: Feels better (Patient feeling better, was able to ambulate on the affected extremity, no new complaints, afebrile with vital signs stable.) Review of Systems: Not Done Objective Vital signs Vital Sign Date Time Temp Pulse Resp B/P (MAP) Pulse Ox O2 Delivery O2 Flow Rate FiO2 05/20/25 09:00 99.4 66 17 125/70 (88) 96 99.4 05/20/25 08:00 Room Air* 0 21 Total Intake and Output 05/19/25 05/19/25 05/20/25 15:00 23:00 07:00 Intake Total 600 ml Output Total 950 ml 2201 ml Balance -350 ml -2201 ml Medications Current Medications Medications Dose Ordered Sig/Matt Route Start Time Stop Time Status Last Admin Dose Admin Lactulose 30 ml BID PO 05/12/25 10:00 05/20/25 08:38 30 ML Folic Acid 1 mg/ Dextrose 50.2 ml @ 200.8 mls/ hr DAILY INJ 05/12/25 10:00 05/20/25 09:55 200.8 MLS/HR Thiamine HCl 100 mg DAILY IV 05/12/25 10:00 05/20/25 08:38 100 MG Pantoprazole Sodium 40 mg BID IV 05/12/25 10:00 05/20/25 08:38 40 MG Diagnostic Test (Pha) 1 strip IQ4HR 05/12/25 04:00 05/20/25 08:00 1 STRIP Insulin Human Regular IQ4HR SC 05/12/25 04:00 05/20/25 08:53 3 UNITS Dextrose 50 ml UD PRN IV 05/12/25 03:00 Acetaminophen/ Hydrocodone Bitart 1 tab Q4HP PRN PO 05/12/25 03:00 05/19/25 08:29 1 TAB Ondansetron HCl 4 mg Q4HP PRN IV 05/12/25 03:00 Docusate Sodium 100 mg BIDPRN PRN PO 05/12/25 03:00 Nitroglycerin 0.4 mg Q5MINP PRN SL 05/12/25 03:00 Morphine Sulfate 2 mg Q30M PRN IV 05/12/25 03:00 Multivitamins 1 tab DAILY PO 05/12/25 10:00 05/20/25 08:38 1 TAB Piperacillin Sod/ Tazobactam Sod 100 ml @ 25 mls/hr Q8HR IV 05/12/25 16:49 05/19/25 20:59 25 MLS/HR Morphine Sulfate 2 mg Q4HPRN PRN IV 05/12/25 08:45 05/20/25 04:06 2 MG Acetaminophen 650 mg Q4HP PRN PO 05/12/25 22:00 05/15/25 05:14 650 MG Lorazepam 1 mg Q2HPRN PRN IV 05/12/25 18:00 05/13/25 08:46 1 MG Enteral Nutritional Formula 27.5 gm BIDWM PO 05/17/25 18:00 05/20/25 08:41 27.5 GM Laboratory Laboratory Tests 05/20/25 07:22 Test 05/20/25 07:22 Range/Units Serum Glucose 151 H 74-106 mg/dL Microbiology Date/Time Source Procedure Growth Status 05/18/25 07:56 Knee Right Gram Stain - Final Resulted 05/18/25 07:56 Knee Right Anaerobic Culture - Preliminary Resulted 05/18/25 07:56 Knee Right Wound Culture - Preliminary Resulted 05/12/25 18:26 Blood Blood Culture - Final NO GROWTH AFTER 5 DAYS OF INCUBATION. Complete Examination: GENERAL:Normal, SKIN:Abnormal (Right posterior knee wound with wound edge erythema, no pus, no drainage, no necrotic tissue, no crepitus, tender) Labs and/or images reviewed: Labs reviewed by me (No leukocytosis) Problem List/Assessment/Plan Assessment and Plan 54-year-old male who was consulted due to right lower extremity abscess, he is currently postop day 2 from incision and drainage with evacuation of abscess at the OR. Right lower extremity conditions have improved significantly, edema has gone down, wound without any pus or drainage. Patient is cleared for discharge per surgical standpoint. 1. Continue with p.o. antibiotics at home for 7-10 days 2. Still pending cultures 3. Daily dressing changes as indicated in the order 4. Patient will need home health services for wound care at home, unless he has a family member that can be taught how to perform the dressing changes. At home he will require daily dressing changes as indicated in the dressing change order. 5. Another option is to consult wound nurse, for the possibility of placing a wound VAC, and discharging the patient with a wound VAC. 6. I will sign off at this time please call with any questions or concerns. Plan discussed with Plan discussed with: Patient Visit Coding Surgery Date of Service if different f: May 20, 2025 Billing Provider: CHUYITA DUKE MD Surgery Visit Codes: [id number] INP/OBS CARE(MOD) CHUYITA DUKE MD May 20, 2025 10:52
--- NOTE | 2025-05-20 17:56 | DVHPN2 ---
Subjective Patient's wound was examined wishes in the right popliteal fossa. Still has some drainage. Patient is status post I and D of the right popliteal fossa. Changes from previous H/P or p: No Changes Eyes: No Pain, No Vision change, No Conjunctivae inflammation, No Eyelid inflammation, No Other, No Redness ENT: No Ear pain, No Ear discharge, No Nose pain, No Nose discharge, No Nose congestion, No Mouth pain, No Mouth swelling, No Throat pain, No Throat swelling, No Other Cardiovascular: No Chest Pain, No Palpitations, No Orthopnea, No Paroxysmal Noc. Dyspnea, No Edema, No Lt Headedness, No Other Respiratory: No Cough, No Dry, No Shortness of breath, No SOB with excertion, No Wheezing, No Hemoptysis, No Pleuritic Pain, No Sputum, No Other Gastrointestinal: No Nausea, No Vomiting, No Abdominal Pain, No Diarrhea, No Constipation, No Melena, No Hematochezia, No Other Genitourinary: No Dysuria, No Frequency, No Incontinence, No Hematuria, No Retention, No Other Musculoskeletal: other (Right lower leg pain); No neck pain, No shoulder pain, No arm pain, No back pain, No hand pain, No leg pain, No foot pain Skin: No Rash, No Lesions, No Jaundice, No Bruising, No Other Objective Vitals Vital Signs Date Time Temp Pulse Resp B/P (MAP) Pulse Ox O2 Delivery O2 Flow Rate FiO2 05/20/25 16:49 97.6 64 18 127/69 (88) 98 97.6 05/20/25 08:00 Room Air* 0 21 Intake/Output Intake and Output 05/20/25 07:00 Intake Total 600 ml Output Total 3151 ml Balance -2551 ml Intake Oral 600 ml Output Urine Total 3150 ml Stool Total 1 ml Exam HEENT pupils are reactive Neck is supple CV is S1-S2 regular rate and rhythm Respiratory diminished breath sounds bases GI positive bowel sound Extremity no edema [employer] no motor deficit Medications Current Medications Medications Dose Ordered Sig/Matt Route Start Time Stop Time Status Last Admin Dose Admin Lactulose 30 ml BID PO 05/12/25 10:00 05/20/25 08:38 30 ML Folic Acid 1 mg/ Dextrose 50.2 ml @ 200.8 mls/ hr DAILY INJ 05/12/25 10:00 05/20/25 09:55 200.8 MLS/HR Thiamine HCl 100 mg DAILY IV 05/12/25 10:00 05/20/25 08:38 100 MG Pantoprazole Sodium 40 mg BID IV 05/12/25 10:00 05/20/25 08:38 40 MG Diagnostic Test (Pha) 1 strip IQ4HR 05/12/25 04:00 05/20/25 15:50 1 STRIP Insulin Human Regular IQ4HR SC 05/12/25 04:00 05/20/25 16:38 6 UNITS Dextrose 50 ml UD PRN IV 05/12/25 03:00 Acetaminophen/ Hydrocodone Bitart 1 tab Q4HP PRN PO 05/12/25 03:00 05/19/25 08:29 1 TAB Ondansetron HCl 4 mg Q4HP PRN IV 05/12/25 03:00 Docusate Sodium 100 mg BIDPRN PRN PO 05/12/25 03:00 Nitroglycerin 0.4 mg Q5MINP PRN SL 05/12/25 03:00 Morphine Sulfate 2 mg Q30M PRN IV 05/12/25 03:00 Multivitamins 1 tab DAILY PO 05/12/25 10:00 05/20/25 08:38 1 TAB Piperacillin Sod/ Tazobactam Sod 100 ml @ 25 mls/hr Q8HR IV 05/12/25 16:49 05/20/25 13:58 25 MLS/HR Morphine Sulfate 2 mg Q4HPRN PRN IV 05/12/25 08:45 05/20/25 04:06 2 MG Acetaminophen 650 mg Q4HP PRN PO 05/12/25 22:00 05/15/25 05:14 650 MG Lorazepam 1 mg Q2HPRN PRN IV 05/12/25 18:00 05/13/25 08:46 1 MG Enteral Nutritional Formula 27.5 gm BIDWM PO 05/17/25 18:00 05/20/25 08:41 27.5 GM Laboratory Results Laboratory Tests 05/20/25 07:22 Chemistry Test 05/20/25 07:22 Albumin 1.7 g/dL (3.2-4.8) L Calcium Level 7.4 mg/dL (8.7-10.4) L Total Protein 6.1 g/dL (5.7-8.2) LFT Test 05/20/25 07:22 Alanine Aminotransferase (ALT) 26 U/L (7-40) Alkaline Phosphatase 123 U/L (46-116) H Aspartate Amino Transferase (AST) 74 U/L (13-40) H Total Bilirubin 3.6 mg/dL (0.2-1.0) H Urinalysis Test 05/14/25 22:00 Urine Color Dark-yellow (Yellow) Urine Clarity Clear (Clear) Urine pH 6.0 (5.0-9.0) Urine Specific [place] 1.030 (1.001-1.035) Urine Protein Trace (Negative) H Urine Ketones Negative (Negative) Urine Blood 1+ /uL (Negative) H Urine Nitrite Negative (Negative) Urine Bilirubin 2+ (Negative) Urine Urobilinogen 12 mg/dL (Negative) H Urine Leukocyte Esterase Negative /uL (Negative) Urine RBC 16 /hpf (0 - 3) Urine Microscopic WBC 2 /HPF (0-3) Urine Squamous Epithelial Cells Few /hpf (<5) Urine Bacteria None seen /hpf (None Seen) Urine Glucose 4+ mg/dL (Normal) H Microbiology Microbiology Date/Time Source Procedure Growth Status 05/18/25 07:56 Knee Right Gram Stain - Final Resulted 05/18/25 07:56 Knee Right Anaerobic Culture - Preliminary Resulted 05/18/25 07:56 Wound Culture - Final Staphylococcus aureus Resulted 05/12/25 18:26 Blood Blood Culture - Final NO GROWTH AFTER 5 DAYS OF INCUBATION. Complete Assessment/Plan Assessment/Plan 54-year-old male with a known history of chronic alcoholism, liver cirrhosis, diabetes mellitus type 2 who initially presented to the hospital with bump in the right knee found to have 1. Right popliteal fossa abscess status post I and D 2. Liver cirrhosis 3. Chronic alcoholism 4. Diabetes mellitus type 2 5. Coagulopathy -IV antibiotics wound care , please arrange home health for home wound care for the right knee, continue pain meds -patient's dialed her cell phone and daughter was updated on the phone regarding current plan of care. Plan discussed with: Patient, Daughter My Orders Orders - SALVADOR HEARN MD Procedure Category Date Status Time * Senior Principal CONS 05/20/25 Transmitted Consult Date of Service: May 20, 2025 Billing Provider: SALVADOR HEARN MD Common Visit Codes: [id number] INP/OBS CARE(MOD) SALVADOR HEARN MD May 20, 2025 17:56
[2025-05-21] VITALS (9 sets, daily range): BP systolic 130–152; BP diastolic 73–91; PULSE 56–60; RESP 17–18; TEMP 97.8–98.9; O2SAT 95–98
--- NOTE | 2025-05-21 17:48 | DVHPN2 ---
Subjective Patient's wound was examined wishes in the right popliteal fossa. Still has some drainage. Patient is status post I and D of the right popliteal fossa. Changes from previous H/P or p: No Changes Eyes: No Pain, No Vision change, No Conjunctivae inflammation, No Eyelid inflammation, No Other, No Redness ENT: No Ear pain, No Ear discharge, No Nose pain, No Nose discharge, No Nose congestion, No Mouth pain, No Mouth swelling, No Throat pain, No Throat swelling, No Other Cardiovascular: No Chest Pain, No Palpitations, No Orthopnea, No Paroxysmal Noc. Dyspnea, No Edema, No Lt Headedness, No Other Respiratory: No Cough, No Dry, No Shortness of breath, No SOB with excertion, No Wheezing, No Hemoptysis, No Pleuritic Pain, No Sputum, No Other Gastrointestinal: No Nausea, No Vomiting, No Abdominal Pain, No Diarrhea, No Constipation, No Melena, No Hematochezia, No Other Genitourinary: No Dysuria, No Frequency, No Incontinence, No Hematuria, No Retention, No Other Musculoskeletal: other (Right lower leg pain); No neck pain, No shoulder pain, No arm pain, No back pain, No hand pain, No leg pain, No foot pain Skin: No Rash, No Lesions, No Jaundice, No Bruising, No Other Objective Vitals Vital Signs Date Time Temp Pulse Resp B/P (MAP) Pulse Ox O2 Delivery O2 Flow Rate FiO2 05/21/25 17:00 97.9 56 18 130/73 (92) 98 97.9 05/21/25 07:41 Room Air* 0 21 Intake/Output Intake and Output 05/21/25 07:00 Intake Total 1350.2 ml Output Total 5900 ml Balance -4549.8 ml Intake Oral 1200 ml IV Total 150.2 ml Output Urine Total 5900 ml Exam HEENT pupils are reactive Neck is supple CV is S1-S2 regular rate and rhythm Respiratory diminished breath sounds bases GI positive bowel sound Extremity no edema [employer] no motor deficit Medications Current Medications Medications Dose Ordered Sig/Matt Route Start Time Stop Time Status Last Admin Dose Admin Lactulose 30 ml BID PO 05/12/25 10:00 05/21/25 08:12 30 ML Folic Acid 1 mg/ Dextrose 50.2 ml @ 200.8 mls/ hr DAILY INJ 05/12/25 10:00 05/21/25 08:14 200.8 MLS/HR Thiamine HCl 100 mg DAILY IV 05/12/25 10:00 05/21/25 08:12 100 MG Pantoprazole Sodium 40 mg BID IV 05/12/25 10:00 05/21/25 08:12 40 MG Diagnostic Test (Pha) 1 strip IQ4HR 05/12/25 04:00 05/21/25 16:00 1 STRIP Insulin Human Regular IQ4HR SC 05/12/25 04:00 05/21/25 11:40 6 UNITS Dextrose 50 ml UD PRN IV 05/12/25 03:00 Acetaminophen/ Hydrocodone Bitart 1 tab Q4HP PRN PO 05/12/25 03:00 05/21/25 11:38 1 TAB Ondansetron HCl 4 mg Q4HP PRN IV 05/12/25 03:00 Docusate Sodium 100 mg BIDPRN PRN PO 05/12/25 03:00 Nitroglycerin 0.4 mg Q5MINP PRN SL 05/12/25 03:00 Morphine Sulfate 2 mg Q30M PRN IV 05/12/25 03:00 Multivitamins 1 tab DAILY PO 05/12/25 10:00 05/21/25 08:12 1 TAB Piperacillin Sod/ Tazobactam Sod 100 ml @ 25 mls/hr Q8HR IV 05/12/25 16:49 05/21/25 14:06 25 MLS/HR Morphine Sulfate 2 mg Q4HPRN PRN IV 05/12/25 08:45 05/20/25 04:06 2 MG Acetaminophen 650 mg Q4HP PRN PO 05/12/25 22:00 05/15/25 05:14 650 MG Lorazepam 1 mg Q2HPRN PRN IV 05/12/25 18:00 05/13/25 08:46 1 MG Enteral Nutritional Formula 27.5 gm BIDWM PO 05/17/25 18:00 05/21/25 08:18 27.5 GM Laboratory Results Laboratory Tests 05/20/25 07:22 Urinalysis Test 05/14/25 22:00 Urine Color Dark-yellow (Yellow) Urine Clarity Clear (Clear) Urine pH 6.0 (5.0-9.0) Urine Specific [place] 1.030 (1.001-1.035) Urine Protein Trace (Negative) H Urine Ketones Negative (Negative) Urine Blood 1+ /uL (Negative) H Urine Nitrite Negative (Negative) Urine Bilirubin 2+ (Negative) Urine Urobilinogen 12 mg/dL (Negative) H Urine Leukocyte Esterase Negative /uL (Negative) Urine RBC 16 /hpf (0 - 3) Urine Microscopic WBC 2 /HPF (0-3) Urine Squamous Epithelial Cells Few /hpf (<5) Urine Bacteria None seen /hpf (None Seen) Urine Glucose 4+ mg/dL (Normal) H Microbiology Microbiology Date/Time Source Procedure Growth Status 05/18/25 07:56 Knee Right Gram Stain - Final Resulted 05/18/25 07:56 Knee Right Anaerobic Culture - Preliminary Resulted 05/18/25 07:56 Wound Culture - Final Staphylococcus aureus Resulted 05/12/25 18:26 Blood Blood Culture - Final NO GROWTH AFTER 5 DAYS OF INCUBATION. Complete Assessment/Plan Assessment/Plan 54-year-old male with a known history of chronic alcoholism, liver cirrhosis, diabetes mellitus type 2 who initially presented to the hospital with bump in the right knee found to have 1. Right popliteal fossa abscess status post I and D 2. Liver cirrhosis 3. Chronic alcoholism 4. Diabetes mellitus type 2 5. Coagulopathy -IV antibiotics wound care , please arrange home health for home wound care for the right knee, continue pain meds -patient's dialed her cell phone and daughter was updated on the phone regarding current plan of care. Plan discussed with: Patient Date of Service: May 21, 2025 Billing Provider: SALVADOR HEARN MD Common Visit Codes: [id number] INP/OBS CARE(MOD) SALVADOR HEARN MD May 21, 2025 17:48
[2025-05-22] VITALS (7 sets, daily range): BP systolic 129–142; BP diastolic 67–88; PULSE 54–66; RESP 16–18; TEMP 37.1; O2SAT 97–98
[2025-05-22] MEDS ORDERED: AUG875T PO (17:23)
--- NOTE | 2025-05-22 18:24 | DVHDS2 ---
Discharge Summary Date of Admission May 12, 2025 at 02:54 Date of Discharge: May 22, 2025 Labs/Diagnostic Data: Laboratory Results Test 05/22/25 16:03 05/20/25 07:22 05/18/25 05:53 05/16/25 13:00 POC Glucose 213 mg/dl (70-106) White Blood Count 4.7 10^3/uL (4.4-10.8) Red Blood Count 3.13 10^6/uL (4.5-5.90) Hemoglobin 11.6 g/dL (13.5-17.5) Hematocrit 33.4 % (41.0-53.0) Mean Corpuscular Volume 106.7 fL (80.0-100.0) Mean Corpuscular Hemoglobin 37.2 pg (28.0-32.0) Mean Corpuscular Hemoglobin Concent 34.8 g/dL (32.0-36.0) Red Cell Distribution Width 14.1 % (11.8-14.3) Platelet Count 113 10^3/uL (140-450) Mean Platelet Volume 7.6 fL (6.9-10.8) Neutrophils (%) (Auto) 75.7 % (37.0-80.0) Lymphocytes (%) (Auto) 14.1 % (10.0-50.0) Monocytes (%) (Auto) 8.6 % (0.0-12.0) Eosinophils (%) (Auto) 0.8 % (0.0-7.0) Basophils (%) (Auto) 0.8 % (0.0-2.0) Neutrophils # (Auto) 3.5 10 ^3/uL (1.6-8.6) Lymphocytes # (Auto) 0.7 10 ^3/uL (0.4-5.4) Monocytes # (Auto) 0.4 10 ^3/uL (0-1.3) Eosinophils # (Auto) 0 10 ^3/uL (0-0.8) Basophils # (Auto) 0 10 ^3/uL (0-0.2) Nucleated Red Blood Cells 0.1 % Sodium Level 131 mmol/L (136-145) Potassium Level 4.3 mmol/L (3.5-5.1) Chloride Level 102 mmol/L (98-107) Carbon Dioxide Level 24 mmol/L (20-31) Anion Gap 5 (5-15) Blood Urea Nitrogen 7 mg/dL (9-23) Creatinine 0.56 mg/dL (0.700-1.30) Glomerular Filtration Rate Calc 116 mL/min (>90) BUN/Creatinine Ratio 12.5 (10.0-20.0) Serum Glucose 151 mg/dL (74-106) Calcium Level 7.4 mg/dL (8.7-10.4) Total Bilirubin 3.6 mg/dL (0.2-1.0) Aspartate Amino Transferase (AST) 74 U/L (13-40) Alanine Aminotransferase (ALT) 26 U/L (7-40) Alkaline Phosphatase 123 U/L (46-116) Total Protein 6.1 g/dL (5.7-8.2) Albumin 1.7 g/dL (3.2-4.8) Prothrombin Time 17.7 sec (9.3-11.8) Prothrombin Time INR 1.77 (0.9-1.15) Stool Occult Blood Positive (Negative) Stool Occult Blood Sample #3 (Negative) Test 05/14/25 22:00 05/14/25 05:33 05/12/25 18:15 05/11/25 22:59 Urine Color Dark-yellow (Yellow) Urine Clarity Clear (Clear) Urine pH 6.0 (5.0-9.0) Urine Specific [place] 1.030 (1.001-1.035) Urine Protein Trace (Negative) Urine Ketones Negative (Negative) Urine Blood 1+ /uL (Negative) Urine Nitrite Negative (Negative) Urine Bilirubin 2+ (Negative) Urine Urobilinogen 12 mg/dL (Negative) Urine Leukocyte Esterase Negative /uL (Negative) Urine RBC 16 /hpf (0 - 3) Urine Microscopic WBC 2 /HPF (0-3) Urine Squamous Epithelial Cells Few /hpf (<5) Urine Bacteria None seen /hpf (None Seen) Urine Glucose 4+ mg/dL (Normal) Urine Opiates Screen Neg (NEGATIVE) Urine Fentanyl Screen Neg (NEGATIVE) Urine Barbiturates Screen Neg (NEGATIVE) Urine Phencyclidine Screen Neg (NEGATIVE) Urine Amphetamines Screen Neg (NEGATIVE) Urine Benzodiazepines Screen Neg (NEGATIVE) Urine Cocaine Screen Neg (NEGATIVE) Urine Cannabinoids Screen Neg (NEGATIVE) Ammonia 18 umol/L (11-32) Activated Partial Thromboplast Time 41.4 SEC (24.5-34.5) Lactic Acid Level 2.5 mmol/L (0.4-2.0) Test 05/11/25 21:55 05/11/25 21:12 Troponin I High Sensitivity < 3 ng/L (</=54) Magnesium Level 1.5 mg/dL (1.6-2.6) Other Laboratory Tests 05/20/25 07:22 Brief Hx & Hospital Course: 54-year-old male with a known history of chronic alcoholism, liver cirrhosis, diabetes mellitus type 2 who initially presented to the hospital with bump in the right knee found to have right popliteal fossa abscess. Patient was admitted started on IV antibiotics. General surgery was consulted. Patient was recommended to have I&D. Patient we will be arranged for home health and home wound care for the right knee wound. Patient does have known history of diabetes mellitus type 2, diabetic education has been given. This is no recent A1c. Patient is being discharged on p.o. antibiotics with close follow up as an outpatient with the PCP has been as General surgery. Condition at Discharge: Stable Final Diagnosis/Problems List 54-year-old male with a known history of chronic alcoholism, liver cirrhosis, diabetes mellitus type 2 who initially presented to the hospital with bump in the right knee found to have 1. Right popliteal fossa abscess status post I and D 2. Liver cirrhosis 3. Chronic alcoholism 4. Diabetes mellitus type 2 5. Coagulopathy Discharge Disposition: Home with Health Services SNF Discharge Will this Physician continue t: No Discharge Instruct/Medications Diet: Cardiac 2g Na,low cholest Diet comment: 1800 ADA diet Activity: No Restrictions, As Tolerated Follow Up/Referral: Follow up with the PCP in one week Follow up with the General surgery in one week Medications: Augmentin as prescribed. Patient does not want any narcotics. New Medications: Amoxicillin & Pot Clavulanate (Augmentin Tablet) 875 Mg Tb 875 MG PO BID for 7 Days, #14 TAB Scheduled Amoxicillin & Pot Clavulanate (Augmentin Tablet), 875 MG PO BID Discharge Statement: "Patient was advised to return to the ER or call 911 if any headaches, dizziness, shortness of breath, chest pain, abdominal pain, bleeding, fevers, or worsening of medical condition. Patient was counseled about treatment plan, medications, possible side effects, patientverbalized understanding. All questions were answered to the best of my ability. This discharge took greater then 30 minutes in planning, reviewing documentation, counseling the patient, and discussing with other team members." ASSESSMENT ASSESSMENT Assessment 54-year-old male with a known history of chronic alcoholism, liver cirrhosis, diabetes mellitus type 2 who initially presented to the hospital with bump in the right knee found to have 1. Right popliteal fossa abscess status post I and D 2. Liver cirrhosis 3. Chronic alcoholism 4. Diabetes mellitus type 2 5. Coagulopathy Date of Service: May 22, 2025 Billing Provider: SALVADOR HEARN MD Common Visit Codes: [id number] DISCH DAY >30min SALVADOR HEARN MD May 22, 2025 18:24
== END 2025-05-22 19:02 | disposition home health service (06) | DRG 383 ==
LOC: ER 20:08 → OVERFLOW 05-12 02:54 → TELE-EAST 05-12 03:03
PROVIDERS: ADMIT Internal Medicine; ATTEND Internal Medicine
PROC: 0Y9F0ZZ Drainage of Right Knee Region, Open Approach (ICD-10-PCS; principal; 2025-05-18 07:28)
DX: L02.415 Cutaneous abscess of right lower limb (principal); K72.10 Chronic hepatic failure without coma; D68.9 Coagulation defect, unspecified; E83.51 Hypocalcemia; E87.1 Hypo-osmolality and hyponatremia; K74.60 Unspecified cirrhosis of liver; L03.115 Cellulitis of right lower limb; E11.65 Type 2 diabetes mellitus with hyperglycemia; E83.42 Hypomagnesemia; F10.239 Alcohol dependence with withdrawal, unspecified; F17.210 Nicotine dependence, cigarettes, uncomplicated; Y90.9 Presence of alcohol in blood, level not specified; M71.21 Synovial cyst of popliteal space [Baker], right knee
CPT/HCPCS: 36415; 70450; 71045; 73700; 73721; 74176; 80053; 80307; 81001; 82140; 82270; 82962; 83605; 83735; 84484; 85025; 85610; 85730; 86850; 86900; 86901; 87040; 87075; 87077; 87081; 87186; 93005; 93306; 93971; 96361; 96365; 97110; 97116; 97163; 97530; G0378; J1815; J2003; J2250; J2405; J2470; J2543; J2704; J3490; J7060; P9047